=== PATIENT | female | born 1970 | race Caucasian/White ===

== ENCOUNTER → 2016-09-30 | Outpatient (CLI) | payer BC ==
--- NOTE | 2016-09-30 11:23 | US ---
EXAMINATION TYPE: US abdomen limited DATE OF EXAM: 09/30/2016 11:06 AM COMPARISON: NONE CLINICAL HISTORY: K81.0 R10.9 Cholycysitis Abdominal pain. Pt states back pain that radiates to epiga stric area/ Diarrhea EXAM MEASUREMENTS: Liver Length: 15.7 cm Gallbladder Wall: 0.2 cm CBD: 0.3 cm Right Kidney: 9.6 x 4.3 x 4.3 cm Findings: Pancreas: wnl, tail obscured by bowel gas Liver: Appered heterogeneous, otherwise wnl Gallbladder: wnl Evidence for sonographic Velasquez's sign: No CBD: wnl Right Kidney: wnl IMPRESSION: 1. Mild fatty hepatic infiltration.
== END | disposition home or self-care (01) ==
LOC: RADUSWWP 10:51
PROVIDERS: ATTEND Family Medicine
DX: K76.0 Fatty (change of) liver, not elsewhere classified (principal)
CPT/HCPCS: 76705

== ENCOUNTER 2016-10-19 09:33 | Inpatient (IN) | payer BC ==
[2016-10-19] MEDS ORDERED: HYDROmorphone 1 MG/ML 1 ML SYRINGE IVP STA ×2 (09:54→12:19)
[2016-10-19] MEDS ORDERED: ONDANSETRON 4 MG/2 ML VIAL IVP STA (09:54)
[2016-10-19] MEDS ORDERED: SODIUM CHLORIDE 0.9% 1,000 ML IV STA ×2 (09:54)
--- NOTE | 2016-10-19 10:15 | ED ---
General Adult HPI - General Chief complaint: Abdominal Pain Stated complaint: SEVERE LLQ PAIN Time Seen by Provider: 10/19/16 09:47 Source: patient, RN notes reviewed Mode of arrival: ambulatory Limitations: no limitations - History of Present Illness Initial comments: Patient is a 45-year-old female who presents emergency room today with a chief complaint of increased left lower quadrant pain that began yesterday. She does admit that she was driving home from [place]. She does admit that this morning she had pain with urination. She admits to increased pain left lower quadrant. She describes it as a sharp pain. Denies any radiation. States she's never had similar symptoms in the past. Does admit to discharge her menstrual cycle yesterday as well. States she usually has pain in her back and not the abdomen. Admits to feeling nauseated. Patient denies any recent fever, chills, shortness of breath, chest pain, back pain, numbness or tingling, dysuria or hematuria, constipation or diarrhea, headaches or visual changes, or any other complaints. - Related Data Home Medications Medication Instructions Recorded Confirmed No Known Home Medications [No 10/19/16 10/19/16 Known Home Medications] Allergies Allergy/AdvReac Type Severity Reaction Status Date / Time Penicillins Allergy Swelling Verified 10/19/16 09:40 Sulfa (Sulfonamide Allergy Swelling Verified 10/19/16 09:40 Antibiotics) Review of Systems ROS Statement: Those systems with pertinent positive or pertinent negative responses have been documented in the HPI. ROS Other: All systems not noted in ROS Statement are negative. Past Medical History Past Medical History: GERD/Reflux, Hyperlipidemia Additional Past Medical History / Comment(s): increase in urination and bowel movements, History of Any Multi-Drug Resistant Organisms: None Reported Past Surgical History: Tonsillectomy Additional Past Surgical History / Comment(s): EGD, fundoplication Past Anesthesia/Blood Transfusion Reactions: Family History of Problems w/ Anesthesia, Motion Sickness Additional Past Anesthesia/Blood Transfusion Reaction / Comment(s): FATHER TAKES LONGER TO WAKE UP, TROUBLE WITH INTUBATION" Past Psychological History: No Psychological Hx Reported Smoking Status: Current some day smoker Past Alcohol Use History: Occasional Past Drug Use History: None Reported - Past Family History Father Family Medical History: Cancer Sister(s) Family Medical History: Cancer General Exam - General Exam Comments Initial Comments: General: The patient is awake and alert, in no distress, and does not appear acutely ill. Eye: Pupils are equal, round and reactive to light, extra-ocular movements are intact. No nystagmus. There is normal conjunctiva bilaterally. No signs of icterus. Ears, nose, mouth and throat: There are moist mucous membranes and no oral lesions. Neck: The neck is supple, there is no tenderness or JVD. Cardiovascular: There is a regular rate and rhythm. No murmur, rub or gallop is appreciated. Respiratory: Lungs are clear to auscultation, respirations are non-labored, breath sounds are equal. No wheezes, stridor, rales, or rhonchi. Gastrointestinal: Normal. His abdomen. Normal bowel sounds. Abdomen soft on palpation. Patient does have mild tenderness in the left lower quadrant. No rebound tenderness. No guarding. No CVA tenderness. Musculoskeletal: Normal ROM, no tenderness. Strength 5/5. Sensation intact. Pulses equal bilaterally 2+. Neurological: A&O x 3. CN II-XII intact, There are no obvious motor or sensory deficits. Coordination appears grossly intact. Speech is normal. Skin: Skin is warm and dry and no rashes or lesions are noted. Psychiatric: Cooperative, appropriate mood & affect, normal judgment. Limitations: no limitations Course Vital Signs 10/19/16 10/19/16 10/19/16 09:35 10:32 12:45 Temperature 97.7 F Pulse Rate 91 79 93 Respiratory 18 15 20 Rate Blood Pressure 172/75 138/84 134/74 O2 Sat by Pulse 100 100 97 Oximetry Medical Decision Making - Medical Decision Making Patient labs been reviewed. 1200 white count. Patient's urinalysis shows large amount of blood. She is on her menstrual cycle. CT has been reviewed and does show evidence for diverticulitis with possible microperforation. Results were discussed with the patient also with attending physician Dr. Pond. Patient will be started on antibiotics and admitted to the hospital. - Lab Data Result diagrams: 10/19/16 10:20 10/19/16 10:20 Lab Results 10/19/16 10/19/16 10/19/16 Range/Units 10:20 10:20 10:20 WBC 12.8 H (3.8-10.6) k/uL RBC 4.26 (3.80-5.40) m/uL Hgb 14.1 (11.4-16.0) gm/dL Hct 42.6 (34.0-46.0) % MCV 100.1 H (80.0-100.0) fL MCH 33.0 (25.0-35.0) pg MCHC 33.0 (31.0-37.0) g/dL RDW 12.8 (11.5-15.5) % Plt Count 275 (150-450) k/uL Neutrophils % 84 % Lymphocytes % 9 % Monocytes % 3 % Eosinophils % 2 % Basophils % 1 % Neutrophils # 10.7 H (1.3-7.7) k/uL Lymphocytes # 1.1 (1.0-4.8) k/uL Monocytes # 0.4 (0-1.0) k/uL Eosinophils # 0.3 (0-0.7) k/uL Basophils # 0.1 (0-0.2) k/uL Sodium 138 (137-145) mmol/L Potassium 5.3 H (3.5-5.1) mmol/L Chloride 105 (98-107) mmol/L Carbon Dioxide 24 (22-30) mmol/L Anion Gap 9 mmol/L BUN 7 (7-17) mg/dL Creatinine 0.71 (0.52-1.04) mg/dL Est GFR (MDRD) Af Amer >60 (>60 ml/min/1.73 sqM) Est GFR (MDRD) Non-Af >60 (>60 ml/min/1.73 sqM) Glucose 97 (74-99) mg/dL Calcium 9.2 (8.4-10.2) mg/dL Total Bilirubin 1.8 H (0.2-1.3) mg/dL AST 47 H (14-36) U/L ALT 16 (9-52) U/L Alkaline Phosphatase 56 (38-126) U/L Total Protein 7.9 (6.3-8.2) g/dL Albumin 4.5 (3.5-5.0) g/dL Amylase 40 (30-110) U/L Lipase 32 (23-300) U/L Urine Color Dark Brown Urine Appearance Turbid H (Clear) Urine pH 5.5 (5.0-8.0) Ur Specific [place] 1.018 (1.001-1.035) Urine Protein 1+ H (Negative) Urine Glucose (UA) Negative (Negative) Urine Ketones Negative (Negative) Urine Blood Large H (Negative) Urine Nitrite Negative (Negative) Urine Bilirubin Negative (Negative) Urine Urobilinogen <2.0 (<2.0) mg/dL Ur Leukocyte Esterase Small H (Negative) Urine RBC >182 H (0-5) /hpf Urine WBC 2 (0-5) /hpf Ur Squamous Epith Cells 2 (0-4) /hpf Urine Bacteria Rare H (None) /hpf Urine Mucus Occasional H (None) /hpf Urine HCG, Qual (Not Detectd) 10/19/16 Range/Units 10:20 WBC (3.8-10.6) k/uL RBC (3.80-5.40) m/uL Hgb (11.4-16.0) gm/dL Hct (34.0-46.0) % MCV (80.0-100.0) fL MCH (25.0-35.0) pg MCHC (31.0-37.0) g/dL RDW (11.5-15.5) % Plt Count (150-450) k/uL Neutrophils % % Lymphocytes % % Monocytes % % Eosinophils % % Basophils % % Neutrophils # (1.3-7.7) k/uL Lymphocytes # (1.0-4.8) k/uL Monocytes # (0-1.0) k/uL Eosinophils # (0-0.7) k/uL Basophils # (0-0.2) k/uL Sodium (137-145) mmol/L Potassium (3.5-5.1) mmol/L Chloride (98-107) mmol/L Carbon Dioxide (22-30) mmol/L Anion Gap mmol/L BUN (7-17) mg/dL Creatinine (0.52-1.04) mg/dL Est GFR (MDRD) Af Amer (>60 ml/min/1.73 sqM) Est GFR (MDRD) Non-Af (>60 ml/min/1.73 sqM) Glucose (74-99) mg/dL Calcium (8.4-10.2) mg/dL Total Bilirubin (0.2-1.3) mg/dL AST (14-36) U/L ALT (9-52) U/L Alkaline Phosphatase (38-126) U/L Total Protein (6.3-8.2) g/dL Albumin (3.5-5.0) g/dL Amylase (30-110) U/L Lipase (23-300) U/L Urine Color Urine Appearance (Clear) Urine pH (5.0-8.0) Ur Specific [place] (1.001-1.035) Urine Protein (Negative) Urine Glucose (UA) (Negative) Urine Ketones (Negative) Urine Blood (Negative) Urine Nitrite (Negative) Urine Bilirubin (Negative) Urine Urobilinogen (<2.0) mg/dL Ur Leukocyte Esterase (Negative) Urine RBC (0-5) /hpf Urine WBC (0-5) /hpf Ur Squamous Epith Cells (0-4) /hpf Urine Bacteria (None) /hpf Urine Mucus (None) /hpf Urine HCG, Qual Not Detected (Not Detectd) Disposition Clinical Impression: Acute diverticulitis Disposition: ADMITTED IP TO THIS [facility] Condition: Good Time of Disposition: 13:28
[2016-10-19 10:33] LABS: Basophils # (A) 0.1 k/uL (0-0.2); Basophils % (A) 1 %; CH 33.7; CHCM 33.8; Eosinophils # (A) 0.3 k/uL (0-0.7); Eosinophils % (A) 2 %; HCT 42.6 % (34.0-46.0); HDW 2.29; HGB 14.1 gm/dL (11.4-16.0); Luc # (Auto) 0.18; Luc % (Auto) 1; Lymphocytes # (A) 1.1 k/uL (1.0-4.8); Lymphocytes % (A) 9 %; MCV 100.1 fL (80.0-100.0); Monocytes # (A) 0.4 k/uL (0-1.0); Monocytes % (A) 3 %; Neutrophils # (A) 10.7 k/uL (1.3-7.7); Neutrophils % (A) 84 %; RBC 4.26 m/uL (3.80-5.40); RDW 12.8 % (11.5-15.5); WBC 12.8 k/uL (3.8-10.6); WBC (Perox) 12.99
[2016-10-19 10:42] LABS: ALT 16 U/L (9-52); AST 47 U/L (14-36); Alkaline Phosphatase 56 U/L (38-126); Amylase 40 U/L (30-110); Anion Gap 9 mmol/L; Blood Urea Nitrogen 7 mg/dL (7-17); Calcium 9.2 mg/dL (8.4-10.2); Carbon Dioxide 24 mmol/L (22-30); Chloride 105 mmol/L (98-107); Glucose 97 mg/dL (74-99); Non-African American GFR(MDRD) >60 (>60 ml/min/1.73 sqM); Sodium 138 mmol/L (137-145); Total Bilirubin 1.8 mg/dL (0.2-1.3); Total Protein 7.9 g/dL (6.3-8.2)
[2016-10-19 10:43] LABS: Potassium 5.3 mmol/L (3.5-5.1)
[2016-10-19 10:44] LABS: Appearance,Urine Turbid (Clear); Bacteria,Urine Rare /hpf; Bilirubin,Urine Negative (Negative); Glucose,Urine (UA) Negative (Negative); Ketones,Urine Negative (Negative); Leukocyte Esterase,Urine Small (Negative); Mucus,Urine Occasional /hpf; Nitrite,Urine Negative (Negative); PH, Urine 5.5 (5.0-8.0); Particle Count 21649; Protein,Urine 1+ (Negative); RBC,Urine >182 /hpf (0-5); Specific Gravity,Urine 1.018 (1.001-1.035); Squamous Epithelial Cell,Urine 2 /hpf (0-4); UA Billing (MACRO vs. MICRO) MICRO; Urobilinogen,Urine <2.0 mg/dL (<2.0); WBC,Urine 2 /hpf (0-5)
--- NOTE | 2016-10-19 11:00 | XR ---
EXAMINATION TYPE: XR KUB DATE OF EXAM: 10/19/2016 10:41 AM CLINICAL HISTORY: Left-sided abdominal pain for 2 days. TECHNIQUE: Single supine KUB image of the abdomen is obtained. COMPARISON: None. FINDINGS: Scattered gas is seen in non-distended small bowel loops. Gas and fecal material is seen in non-distended colon. There is no visceromegaly, pneumoperitoneum, or abnormal calcification appr eciated. The lung bases are clear and the osseous structures are intact. IMPRESSION: Overall nonobstructive bowel gas pattern.
--- NOTE | 2016-10-19 11:48 | US ---
EXAMINATION TYPE: US transvaginal DATE OF EXAM: 10/19/2016 11:25 AM COMPARISON: NONE CLINICAL HISTORY: pain. LLQ pain x 1 day TECHNIQUE: Transvaginal (TV) Date of LMP: 10/18/2016, EXAM MEASUREMENTS: Uterus: 7.4 x 3.5 x 3.2 cm Endometrial Stripe: 0.3 cm Right Ovary: 2.8 x 1.8 x 1.8 cm 1. Uterus: Anteverted Heterogenous. 2. Endometrium: wnl 3. Right Ovary: Follicles seen 4. Left Ovary: Not visualized, obscured by overlying bowel gas Spectral, color and waveform doppler imaging shows good arterial and venous flow within the ovaries ; there is no evidence for ovarian torsion. 5. Bilateral Adnexa: wnl 6. Posterior cul-de-sac: Free fluid Cervix- echogenic lesion seen, nonvascular= 1.0 x 0.8 x 0.5 cm. IMPRESSION: There is echogenic focus along the cervix at the level of the endometrium which is ill-de fined. Consider short interval follow-up, endometrial biopsy as indicated. Consider [employer] consult. Exam is limited.
--- NOTE | 2016-10-19 12:46 | CT ---
EXAMINATION TYPE: CT abdomen pelvis wo con DATE OF EXAM: 10/19/2016 12:37 PM HISTORY: anterior LLQ pain worse with urination. CT DLP: 420.0 mGycm. Automated Exposure Control for Dose Reduction was Utilized. TECHNIQUE: CT scan of the abdomen and pelvis is performed without oral or IV contrast. COMPARISON: Pelvic ultrasound earlier today FINDINGS: Within the limitations of a non-contrast study, the following observations are made. LUNG BASES: Dependent atelectatic change in both lung bases is present. LIVER/GB: No significant abnormality is appreciated. PANCREAS: No significant abnormality is seen. SPLEEN: No significant abnormality is seen. ADRENALS: No significant abnormality is seen. KIDNEYS: No renal stones or hydronephrosis is evident bilaterally. No intraluminal calculus in the bl adder is seen. BOWEL: Evaluation bowel is suboptimal secondary to lack of enteric contrast. There is no suspicious s mall or large bowel dilatation identified. There are few diverticula in the proximal sigmoid colon. T here is moderate surrounding fluid and ill-defined fat stranding consistent with acute diverticulitis centered near axial image 61. Small focus of extraluminal air is suspicious for contained perforatio n posteriorly on sagittal image 75. No well-formed fluid collection or abscess is seen. GENITAL ORGANS: Uterus is anteverted in shape and within normal limits in size extending to right of midline. Small moderate free fluid is seen in pelvic cul-de-sac near axial image 72. Right ovary is normal in size on axial image 70. Left ovary is less well seen likely within normal limits more super iorly on axial image 59. This is likely why was nonvisualized on recent ultrasound. Cervix within nor mal limits on CT. LYMPH NODES: No greater than 1cm abdominal or pelvic lymph nodes are appreciated. OSSEOUS STRUCTURES: No significant abnormality is seen. OTHER: No significant additional abnormality is seen. IMPRESSION: CT findings consistent with a fairly moderate acute diverticulitis centered in the proxim al to mid sigmoid colon in the anterior left lower quadrant/upper pelvis. There is extraluminal air s uspicious for contained microperforation. No well-formed fluid collection or abscess is noted.
[2016-10-19] MEDS ORDERED: LEVOFLOXACIN 500MG-D5W PMX 500 MG in DEXTROSE/WATER 1 100ML.BAG IVPB STA (13:38)
[2016-10-19] MEDS ORDERED: metroNIDAZOLE-NS PMX 500 MG in SALINE 1 100ML.BAG IVPB STA (13:38)
[2016-10-19] MEDS ORDERED: NALOXONE 0.4 MG/ML 1 ML VIAL IV PRN (13:39)
[2016-10-19] MEDS: SODIUM CHLORIDE 0.9% 1,000 ML IV ONE (14:37)
[2016-10-19] MEDS ORDERED: ACETAMINOPHEN TAB 500 MG TAB PO STA (15:05)
[2016-10-19] MEDS: HYDROmorphone 1 MG/ML 1 ML SYRINGE IV PRN ×2 (15:27→20:53)
[2016-10-19] MEDS: ONDANSETRON 4 MG/2 ML VIAL IVP PRN (15:59)
[2016-10-19] MEDS: metroNIDAZOLE-NS PMX 500 MG in SALINE 1 100ML.BAG IVPB SCH ×2 (21:38→23:53)
[2016-10-20] MEDS: HYDROmorphone 1 MG/ML 1 ML SYRINGE IV PRN ×2 (02:16→06:59)
[2016-10-20] MEDS: ONDANSETRON 4 MG/2 ML VIAL IVP PRN ×3 (02:17→18:08)
[2016-10-20] MEDS: SODIUM CHLORIDE 0.9% 1,000 ML IV ONE (04:00)
[2016-10-20] MEDS: metroNIDAZOLE-NS PMX 500 MG in SALINE 1 100ML.BAG IVPB SCH ×4 (06:58→23:47)
[2016-10-20 07:13] LABS: Basophils % (A) 0 %; CH 33.9; CHCM 33.3; Eosinophils # (A) 0.1 k/uL (0-0.7); Eosinophils % (A) 1 %; HCT 37.7 % (34.0-46.0); HDW 2.23; HGB 12.4 gm/dL (11.4-16.0); Luc # (Auto) 0.19; Luc % (Auto) 2; Lymphocytes # (A) 1.2 k/uL (1.0-4.8); Lymphocytes % (A) 11 %; MCH 33.6 pg (25.0-35.0); MCHC 32.8 g/dL (31.0-37.0); MCV 102.2 fL (80.0-100.0); Macrocytosis Slight; Mean Platelet Volume 8.8; Monocytes # (A) 0.4 k/uL (0-1.0); Monocytes % (A) 4 %; Neutrophils # (A) 9.2 k/uL (1.3-7.7); Neutrophils % (A) 82 %; RBC 3.69 m/uL (3.80-5.40); RDW 12.7 % (11.5-15.5); WBC 11.2 k/uL (3.8-10.6); WBC (Perox) 12.11
[2016-10-20 07:40] LABS: ALT 22 U/L (9-52); AST 17 U/L (14-36); Alkaline Phosphatase 43 U/L (38-126); Anion Gap 8 mmol/L; Blood Urea Nitrogen 5 mg/dL (7-17); Calcium 8.3 mg/dL (8.4-10.2); Carbon Dioxide 25 mmol/L (22-30); Chloride 104 mmol/L (98-107); Glucose 102 mg/dL (74-99); Non-African American GFR(MDRD) >60 (>60 ml/min/1.73 sqM); Potassium 3.8 mmol/L (3.5-5.1); Sodium 137 mmol/L (137-145); Total Bilirubin 1.1 mg/dL (0.2-1.3); Total Protein 5.9 g/dL (6.3-8.2)
[2016-10-20] MEDS: HYDROcodone/APAP 5-325MG 1 EACH TAB PO PRN ×3 (11:40→22:58)
[2016-10-20 11:46] VITALS: BMI 30.2
--- NOTE | 2016-10-20 13:04 | P.HPIM ---
History of Present Illness H&P Date: 10/20/16 Chief Complaint: Abdominal pain Patient is a 45-year-old female, patient of Dr. Nair in the outpatient setting, with medical history significant for GERD, hyperlipidemia, and nicotine dependence. Surgical history significant for EGD and Demi fundoplication. Patient presented to the hospital with complaints of left lower quadrant abdominal pain. Patient states she was driving home from [place] and was starting her menstrual cycle which she contributed initially to the abdominal pain. Patient states that eventually she had to proceed to the emergency department because the pain became unbearable. Patient denies history of similar symptoms. CT of abdomen and pelvis with evidence of acute sigmoid colon diverticulitis with contained microperforation. Patient had evidence of leukocytosis with WBC count of 12.8. Temperature 101.5 on admission. In the emergency department, patient was given 1 L of normal saline and started on IV antibiotics in the form of Levaquin and Flagyl. Patient was admitted to the medical floor with consult to Dr. Medina for surgical management. Upon examination, patient complains of left lower quadrant pain currently rated 8 out of 10, described as sharp and persistent associated with nausea without vomiting. Patient is complaining of a frontal headache currently rated 8 out of 10 described as aching associated with facial flushing. Patient denies dysphagia, tinnitus, diplopia, shortness of breath, chest pain, numbness or tingling, muscle weakness, dysuria, urinary urgency, diarrhea or constipation. Denies hematemesis, melena, or hematochezia. Patient does state that over the last 12 months she has been having diarrhea and over the last 6 months frequent episodes of right posterior shoulder pain. Patient states she had an ultrasound of her gallbladder in the outpatient setting and was told she had a fatty liver. Past Medical History Past Medical History: GERD/Reflux, Hyperlipidemia Additional Past Medical History / Comment(s): increase in urination and bowel movements-sated for pat year has had diarrhea on daily basis between 2-6 per day. "lactose intolerant", hiatal hernia(had sx), "i was told i had a fatty liver per the us done" History of Any Multi-Drug Resistant Organisms: None Reported Past Surgical History: Tonsillectomy Additional Past Surgical History / Comment(s): EGD, demi fundoplication Past Anesthesia/Blood Transfusion Reactions: Family History of Problems w/ Anesthesia Additional Past Anesthesia/Blood Transfusion Reaction / Comment(s): FATHER TAKES LONGER TO WAKE UP, TROUBLE WITH INTUBATION" Past Psychological History: No Psychological Hx Reported Additional Psychological History / Comment(s): pt is independant, lives with spouse and 1 pet dog. lives in 2 story home but mainly stays on first level. has 3 steps into home, upstairs has 13 steps. receives no outside services, no medical equipment. pt works for [employer]) and travels for her job. Smoking Status: Current every day smoker Past Alcohol Use History: Occasional Additional Past Alcohol Use History / Comment(s): started smokng at age 16(1986) , smokes 1 ppd Past Drug Use History: None Reported - Past Family History Father Family Medical History: Cancer Sister(s) Family Medical History: Cancer Additional Family Medical History / Comment(s): kidney cancer, and 2nd sister has colitis. Medications and Allergies Home Medications Medication Instructions Recorded Confirmed Type No Known Home Medications [No 10/19/16 10/19/16 History Known Home Medications] Allergies Allergy/AdvReac Type Severity Reaction Status Date / Time Penicillins Allergy Swelling Verified 10/19/16 16:06 Sulfa (Sulfonamide Allergy Swelling Verified 10/19/16 16:06 Antibiotics) Physical Exam Vitals: Vital Signs Temp Pulse Pulse Resp BP BP Pulse Ox 10/20/16 08:30 97.5 F L 89 12 119/77 97 10/19/16 23:00 98.8 F 94 16 124/80 96 10/19/16 20:34 98.3 F 84 18 110/71 100 10/19/16 15:25 100.0 F H 87 20 141/78 100 10/19/16 15:19 101.5 F H 10/19/16 14:41 87 20 135/79 100 Intake and Output 10/19/16 10/20/16 10/20/16 22:59 06:59 14:59 Intake Total 0 Output Total 150 650 Balance -150 -650 Intake: Oral 0 Output: Urine 150 650 Other: Voiding Method Toilet # Voids 1 1 Weight 74.843 kg Patient Weight 10/21/16 06:59 Weight 74.843 kg GENERAL: Pt awake and alert, lying in bed with a washcloth over her face, well- nourished, appears in mild distress. HEAD: Atraumatic, normocephalic. EYES: Pupils equal, round, and reactive to light, extraocular movements intact, sclera anicteric, conjunctiva are normal. ENT: Oropharynx clear without exudates. Moist mucous membranes. Tongue smooth, pink, no lesions, protrudes in midline. NECK:Normal range of motion, supple without lymphadenopathy or JVD. LUNGS: Breath sounds clear to auscultation bilaterally. No wheezes, rales, or rhonchi. HEART: Heart S1, S2, no S3 or S4. Regular rate and rhythm. No murmurs, rubs or gallops. ABDOMEN: Soft, severe left lower quadrant tenderness, nondistended, normoactive bowel sounds. Positive guarding to left lower quadrant. No masses or organomegaly appreciated. EXTREMITIES: Palpable peripheral pulses. No edema. No calf tenderness. NEUROLOGICAL: Pt oriented x 3. Cranial nerves II through XII grossly intact. Strength and sensation grossly intact. PSYCH: Normal mood, normal affect. SKIN: Face is flushed, dry, intact. Normal turgor. No rashes or lesions. Results CBC & Chem 7: 10/20/16 07:03 10/20/16 07:03 Labs: Abnormal Lab Results - Last 24 Hours (Table) 10/20/16 10/20/16 Range/Units 07:03 07:03 WBC 11.2 H (3.8-10.6) k/uL RBC 3.69 L (3.80-5.40) m/uL MCV 102.2 H (80.0-100.0) fL Neutrophils # 9.2 H (1.3-7.7) k/uL BUN 5 L (7-17) mg/dL Glucose 102 H (74-99) mg/dL Calcium 8.3 L (8.4-10.2) mg/dL Total Protein 5.9 L (6.3-8.2) g/dL Albumin 3.2 L (3.5-5.0) g/dL Comments: Transvaginal ultrasound: Cervix-echogenic lesion seen, nonvascular 10.80.5 cm Abdominal x-ray: report reviewed (Nonobstructive bowel gas pattern) CT scan - abdomen: report reviewed (CT findings consistent with early moderate acute diverticulitis centered in the proximal to mid sigmoid colon in the anterior left lower quadrant/upper pelvis. There is extraluminal air suspicious for contained microperforation. No well-formed fluid collection or abscess is noted.) CT scan - chest: report reviewed CT scan - pelvis: report reviewed Thrombosis Risk Factor Assmnt - DVT/VTE Prophylaxis DVT/VTE Prophylaxis: Mechanical Prophylaxis ordered, Low risk, early ambulation encouraged - Choose All That Apply Any of the Below Risk Factors Present?: Yes Each Factor Represents 1 point: Age 41-60 years, Obesity (BMI >25) Other Risk Factors: No Other congenital or acquired thrombophilia - If yes, enter type in comment: No Thrombosis Risk Factor Assessment Total Risk Factor Score: 2 Thrombosis Risk Factor Assessment Level: Low Risk Assessment and Plan Plan: Impression and plan: 1. Acute sigmoid diverticulitis, present on admission. Surgical consult in place, recommendations noted. Continue clear liquid diet, IV antibiotics in the form of Levaquin and Flagyl, symptomatic treatment and pain management, IV fluids. 2. Acute headache, no neurological deficits noted. Continue to monitor, continue supportive treatment and pain management. 3. History of chronic epigastric and right upper quadrant pain radiating to right posterior shoulder associated with diarrhea. Ultrasound of liver shows fatty infiltrate. 4. History of GERD with esophagitis. 5. History of hyperlipidemia. 6. History of Demi fundoplication. 7. Nicotine dependence. 8. DVT prophylaxis. Continue pneumatic compression sleeves to bilateral lower extremities and encourage early ambulation. 9. GI prophylaxis. Continue IV Protonix. The above impression and plan have been discussed and directed by Dr. Nair. Eagle BENITEZ acting as scribe for Dr. Nair.
[2016-10-20] MEDS: LEVOFLOXACIN 500MG-D5W PMX 500 MG in DEXTROSE/WATER 1 100ML.BAG IVPB SCH (13:48)
[2016-10-20] MEDS: PANTOPRAZOLE 40 MG/10 ML VIAL IVP SCH (13:49)
--- NOTE | 2016-10-20 15:50 | P.GSCN ---
History of Present Illness Consult date: 10/20/16 Reason for Consult: Diverticulitis Requesting physician: Juan Nair History of present illness: Patient is a 45-year-old female, patient of Dr. Nair in the outpatient setting, with medical history significant for GERD, esophagitis, and sliding hiatal hernia. Surgical history significant for EGD and Demi fundoplication. Patient presented to the hospital with complaints of left lower quadrant abdominal pain. Patient states she was driving home from [place] and was starting her menstrual cycle which she contributed initially to the abdominal pain. Patient states that eventually she had to proceed to the emergency department because the pain became unbearable. Patient denies history of similar symptoms. CT of abdomen and pelvis with evidence of acute sigmoid colon diverticulitis with contained microperforation. Patient had evidence of leukocytosis with WBC count of 12.8. Temperature 101.5 on admission. In the emergency department, patient was given 1 L of normal saline and started on IV antibiotics in the form of Levaquin and Flagyl. Patient was admitted to the medical floor. Surgical consult requested for acute diverticulitis. Upon examination, patient complains of left lower quadrant pain currently rated 8 out of 10, described as sharp and persistent associated with nausea without vomiting. Patient is complaining of a frontal headache currently rated 8 out of 10 described as aching associated with facial flushing. Patient denies dysphagia, tinnitus, diplopia, shortness of breath, chest pain, numbness or tingling, muscle weakness, dysuria, urinary urgency, diarrhea or constipation. Denies hematemesis, melena, or hematochezia. Patient does state that over the last 12 months she has been having diarrhea and over the last 6 months frequent episodes of right posterior shoulder pain. Patient states she had an ultrasound of her gallbladder in the outpatient setting and was told she had a fatty liver. Past Medical History Past Medical History: GERD/Reflux, Hyperlipidemia Additional Past Medical History / Comment(s): increase in urination and bowel movements-sated for pat year has had diarrhea on daily basis between 2-6 per day. "lactose intolerant", hiatal hernia(had sx), "i was told i had a fatty liver per the us done" History of Any Multi-Drug Resistant Organisms: None Reported Past Surgical History: Tonsillectomy Additional Past Surgical History / Comment(s): EGD, demi fundoplication Past Anesthesia/Blood Transfusion Reactions: Family History of Problems w/ Anesthesia Additional Past Anesthesia/Blood Transfusion Reaction / Comm: FATHER TAKES LONGER TO WAKE UP, TROUBLE WITH INTUBATION" Past Psychological History: No Psychological Hx Reported Additional Psychological History / Comment(s): pt is independant, lives with spouse and 1 pet dog. lives in 2 story home but mainly stays on first level. has 3 steps into home, upstairs has 13 steps. receives no outside services, no medical equipment. pt works for [employer] and travels for her job. Smoking Status: Current every day smoker Past Alcohol Use History: Occasional Additional Past Alcohol Use History / Comment(s): started smokng at age 16(1986) , smokes 1 ppd Past Drug Use History: None Reported - Past Family History Father Family Medical History: Cancer Sister(s) Family Medical History: Cancer Additional Family Medical History / Comment(s): kidney cancer, and 2nd sister has colitis. Medications and Allergies Home Medications Medication Instructions Recorded Confirmed Type No Known Home Medications [No 10/19/16 10/19/16 History Known Home Medications] Allergies Allergy/AdvReac Type Severity Reaction Status Date / Time Penicillins Allergy Swelling Verified 10/19/16 16:06 Sulfa (Sulfonamide Allergy Swelling Verified 10/19/16 16:06 Antibiotics) Surgical - Exam Vital Signs Temp Pulse Resp BP Pulse Ox 97.7 F 91 18 172/75 100 10/19/16 09:35 10/19/16 09:35 10/19/16 09:35 10/19/16 09:35 10/19/16 09:35 GENERAL: Pt awake and alert, lying in bed with a washcloth over her face, well- nourished, appears in mild distress. HEAD: Atraumatic, normocephalic. EYES: Pupils equal, round, and reactive to light, extraocular movements intact, sclera anicteric, conjunctiva are normal. ENT: Oropharynx clear without exudates. Moist mucous membranes. Tongue smooth, pink, no lesions, protrudes in midline. NECK:Normal range of motion, supple without lymphadenopathy or JVD. LUNGS: Breath sounds clear to auscultation bilaterally. No wheezes, rales, or rhonchi. HEART: Heart S1, S2, no S3 or S4. Regular rate and rhythm. No murmurs, rubs or gallops. ABDOMEN: Soft, severe left lower quadrant tenderness, nondistended, normoactive bowel sounds. Positive guarding to left lower quadrant. No masses or organomegaly appreciated. EXTREMITIES: Palpable peripheral pulses. No edema. No calf tenderness. NEUROLOGICAL: Pt oriented x 3. Cranial nerves II through XII grossly intact. Strength and sensation grossly intact. PSYCH: Normal mood, normal affect. SKIN: Face is flushed, dry, intact. Normal turgor. No rashes or lesions. Results - Labs 10/20/16 07:03 10/20/16 07:03 Abnormal Lab Results - Last 24 Hours (Table) 10/20/16 10/20/16 Range/Units 07:03 07:03 WBC 11.2 H (3.8-10.6) k/uL RBC 3.69 L (3.80-5.40) m/uL MCV 102.2 H (80.0-100.0) fL Neutrophils # 9.2 H (1.3-7.7) k/uL BUN 5 L (7-17) mg/dL Glucose 102 H (74-99) mg/dL Calcium 8.3 L (8.4-10.2) mg/dL Total Protein 5.9 L (6.3-8.2) g/dL Albumin 3.2 L (3.5-5.0) g/dL Diabetes panel 10/20/16 Range/Units 07:03 Sodium 137 (137-145) mmol/L Potassium 3.8 (3.5-5.1) mmol/L Chloride 104 (98-107) mmol/L Carbon Dioxide 25 (22-30) mmol/L BUN 5 L (7-17) mg/dL Creatinine 0.66 (0.52-1.04) mg/dL Glucose 102 H (74-99) mg/dL Calcium 8.3 L (8.4-10.2) mg/dL AST 17 (14-36) U/L ALT 22 (9-52) U/L Alkaline Phosphatase 43 (38-126) U/L Total Protein 5.9 L (6.3-8.2) g/dL Albumin 3.2 L (3.5-5.0) g/dL Calcium panel 10/20/16 Range/Units 07:03 Calcium 8.3 L (8.4-10.2) mg/dL Albumin 3.2 L (3.5-5.0) g/dL Pituitary panel 10/20/16 Range/Units 07:03 Sodium 137 (137-145) mmol/L Potassium 3.8 (3.5-5.1) mmol/L Chloride 104 (98-107) mmol/L Carbon Dioxide 25 (22-30) mmol/L BUN 5 L (7-17) mg/dL Creatinine 0.66 (0.52-1.04) mg/dL Glucose 102 H (74-99) mg/dL Calcium 8.3 L (8.4-10.2) mg/dL Adrenal panel 10/20/16 Range/Units 07:03 Sodium 137 (137-145) mmol/L Potassium 3.8 (3.5-5.1) mmol/L Chloride 104 (98-107) mmol/L Carbon Dioxide 25 (22-30) mmol/L BUN 5 L (7-17) mg/dL Creatinine 0.66 (0.52-1.04) mg/dL Glucose 102 H (74-99) mg/dL Calcium 8.3 L (8.4-10.2) mg/dL Total Bilirubin 1.1 (0.2-1.3) mg/dL AST 17 (14-36) U/L ALT 22 (9-52) U/L Alkaline Phosphatase 43 (38-126) U/L Total Protein 5.9 L (6.3-8.2) g/dL Albumin 3.2 L (3.5-5.0) g/dL - Imaging CT scan - abdomen: report reviewed (CT findings consistent with early moderate acute diverticulitis centered in the proximal to mid sigmoid colon in the anterior left lower quadrant/upper pelvis. There is extraluminal air suspicious for contained microperforation. No well-formed fluid collection or abscess is noted.) Assessment and Plan Plan: Impression and plan: 1. Acute sigmoid diverticulitis, present on admission. Continue clear liquid diet, IV antibiotics in the form of Levaquin and Flagyl, symptomatic treatment and pain management, IV fluids. 2. History of chronic epigastric and right upper quadrant pain radiating to right posterior shoulder associated with diarrhea. Ultrasound of liver shows fatty infiltrate. Patient will follow-up in outpatient setting for possible HIDA scan to rule out biliary dyskinesia. 3. History of GERD with esophagitis. 4. History of laparoscopic Demi fundoplication. 5. DVT prophylaxis. Continue pneumatic compression sleeves to bilateral lower extremities and encourage early ambulation. 6. GI prophylaxis. Continue IV Protonix. The above impression and plan have been discussed and directed by Dr. Nair. Eagle BENITEZ acting as scribe for Dr. Nair.
[2016-10-20] MEDS: SODIUM CHLORIDE 0.9% 1,000 ML IV SCH (18:06)
[2016-10-21] MEDS: SODIUM CHLORIDE 0.9% 1,000 ML IV SCH ×3 (04:23→16:19)
[2016-10-21] MEDS: HYDROcodone/APAP 5-325MG 1 EACH TAB PO PRN ×3 (04:24→12:37)
[2016-10-21] MEDS: metroNIDAZOLE-NS PMX 500 MG in SALINE 1 100ML.BAG IVPB SCH ×4 (06:14→23:29)
[2016-10-21 07:04] LABS: Basophils % (A) 0 %; CH 33.9; CHCM 33.4; Eosinophils # (A) 0.2 k/uL (0-0.7); Eosinophils % (A) 3 %; HCT 32.9 % (34.0-46.0); HDW 2.32; Luc # (Auto) 0.16; Luc % (Auto) 2; Lymphocytes # (A) 1.2 k/uL (1.0-4.8); Lymphocytes % (A) 16 %; MCH 33.9 pg (25.0-35.0); MCHC 33.3 g/dL (31.0-37.0); MCV 101.9 fL (80.0-100.0); Macrocytosis Slight; Mean Platelet Volume 8.9; Monocytes # (A) 0.3 k/uL (0-1.0); Monocytes % (A) 5 %; Neutrophils # (A) 5.5 k/uL (1.3-7.7); Neutrophils % (A) 74 %; RBC 3.23 m/uL (3.80-5.40); RDW 12.7 % (11.5-15.5); WBC 7.4 k/uL (3.8-10.6); WBC (Perox) 7.88
[2016-10-21 07:17] LABS: ALT 13 U/L (9-52); AST 14 U/L (14-36); Alkaline Phosphatase 38 U/L (38-126); Anion Gap 10 mmol/L; Blood Urea Nitrogen 3 mg/dL (7-17); Calcium 8.1 mg/dL (8.4-10.2); Carbon Dioxide 23 mmol/L (22-30); Chloride 107 mmol/L (98-107); Glucose 84 mg/dL (74-99); Magnesium 2.1 mg/dL (1.6-2.3); Non-African American GFR(MDRD) >60 (>60 ml/min/1.73 sqM); Phosphorous 2.5 mg/dL (2.5-4.5); Potassium 3.9 mmol/L (3.5-5.1); Sodium 140 mmol/L (137-145); Total Bilirubin 0.5 mg/dL (0.2-1.3); Total Protein 5.4 g/dL (6.3-8.2)
[2016-10-21] MEDS: ONDANSETRON 4 MG/2 ML VIAL IVP PRN ×2 (08:02→15:55)
[2016-10-21] MEDS: PANTOPRAZOLE 40 MG/10 ML VIAL IVP SCH (08:47)
--- NOTE | 2016-10-21 12:00 | P.PN ---
Subjective Principal diagnosis: Acute diverticulitis Patient is a 45-year-old female, patient of Dr. Nair in the outpatient setting, with medical history significant for GERD, hyperlipidemia, and nicotine dependence. Surgical history significant for EGD and Thong fundoplication. Patient presented to the hospital with complaints of left lower quadrant abdominal pain. Patient states she was driving home from [place] and was starting her menstrual cycle which she contributed initially to the abdominal pain. Patient states that eventually she had to proceed to the emergency department because the pain became unbearable. Patient denies history of similar symptoms. CT of abdomen and pelvis with evidence of acute sigmoid colon diverticulitis with contained microperforation. Patient had evidence of leukocytosis with WBC count of 12.8. Temperature 101.5 on admission. In the emergency department, patient was given 1 L of normal saline and started on IV antibiotics in the form of Levaquin and Flagyl. Patient was admitted to the medical floor with consult to Dr. Medina for surgical management. Upon examination, patient complains of left lower quadrant pain currently rated 8 out of 10, described as sharp and persistent associated with nausea without vomiting. Patient is complaining of a frontal headache currently rated 8 out of 10 described as aching associated with facial flushing. Patient denies dysphagia, tinnitus, diplopia, shortness of breath, chest pain, numbness or tingling, muscle weakness, dysuria, urinary urgency, diarrhea or constipation. Denies hematemesis, melena, or hematochezia. Patient does state that over the last 12 months she has been having diarrhea and over the last 6 months frequent episodes of right posterior shoulder pain. Patient states she had an ultrasound of her gallbladder in the outpatient setting and was told she had a fatty liver. 10/21/2016: Patient is reevaluated at bedside. Patient reports improvement in left lower quadrant abdominal pain. Patient currently rates pain 2 out of 10. Patient currently denies headache. Denies chills, fevers, nausea, vomiting, shortness of breath, or chest pain. Patient is tolerating a clear liquid diet. Afebrile. No evidence of leukocytosis. Surgical service is following patient , notes reviewed. Objective - Vital Signs Vital signs: Vital Signs Temp 98.3 F 10/21/16 08:05 Pulse 71 10/21/16 08:05 Resp 20 10/21/16 08:05 BP 129/86 10/21/16 08:05 Pulse Ox 100 10/21/16 08:05 Intake & Output 10/20/16 10/21/16 10/21/16 18:59 06:59 18:59 Intake Total 500 400 Output Total 1100 700 Balance -600 -300 Weight 74.843 kg Intake: Oral 500 400 Output: Urine 1100 700 Other: Voiding Method Toilet Toilet Toilet # Voids 1 - Exam GENERAL: Pt awake and alert, lying in bed, well-nourished, appears in no acute distress. HEAD: Atraumatic, normocephalic. EYES: Pupils equal, round, and reactive to light, extraocular movements intact, sclera anicteric, conjunctiva are normal. ENT: Oropharynx clear without exudates. Moist mucous membranes. Tongue smooth, pink, no lesions, protrudes in midline. NECK:Normal range of motion, supple without lymphadenopathy or JVD. LUNGS: Breath sounds clear to auscultation bilaterally. No wheezes, rales, or rhonchi. HEART: Heart S1, S2, no S3 or S4. Regular rate and rhythm. No murmurs, rubs or gallops. ABDOMEN: Soft, mild left lower quadrant tenderness, nondistended, normoactive bowel sounds. No guarding. No masses or organomegaly appreciated. EXTREMITIES: Palpable peripheral pulses. No edema. No calf tenderness. NEUROLOGICAL: Pt oriented x 3. Cranial nerves II through XII grossly intact. Strength and sensation grossly intact. PSYCH: Normal mood, normal affect. SKIN: Warm, dry, intact. Normal turgor. No rashes or lesions. - Labs CBC & Chem 7: 10/21/16 06:51 10/21/16 06:51 Labs: Abnormal Lab Results - Last 24 Hours (Table) 10/21/16 10/21/16 Range/Units 06:51 06:51 RBC 3.23 L (3.80-5.40) m/uL Hgb 11.0 L (11.4-16.0) gm/dL Hct 32.9 L (34.0-46.0) % MCV 101.9 H (80.0-100.0) fL BUN 3 L (7-17) mg/dL Calcium 8.1 L (8.4-10.2) mg/dL Total Protein 5.4 L (6.3-8.2) g/dL Albumin 2.8 L (3.5-5.0) g/dL Assessment and Plan Plan: Impression and plan: 1. Acute sigmoid diverticulitis, present on admission. Advance diet per surgery, continue IV antibiotics in the form of Levaquin and Flagyl, continue symptomatic treatment and pain management, continue IV fluids. 2. History of chronic epigastric and right upper quadrant pain radiating to right posterior shoulder associated with diarrhea. Ultrasound of liver shows fatty infiltrate. Patient will follow-up in outpatient setting for possible HIDA scan to rule out biliary dyskinesia per surgery. 3. History of GERD with esophagitis. 4. History of laparoscopic Thong fundoplication. 5. DVT prophylaxis. Continue pneumatic compression sleeves to bilateral lower extremities and encourage early ambulation. 6. GI prophylaxis. Continue IV Protonix. The above impression and plan have been discussed and directed by Dr. Nair. Eagle BENITEZ acting as scribe for Dr. Nair.
[2016-10-21] MEDS: LEVOFLOXACIN 500MG-D5W PMX 500 MG in DEXTROSE/WATER 1 100ML.BAG IVPB SCH (13:51)
--- NOTE | 2016-10-21 15:14 | P.PN ---
Subjective Patient is a 45-year-old female admitted with acute sigmoid colon diverticulitis with contained microperforation. Patient is feeling better. Patient currently rates abdominal pain 2 out of 10. Denies chills, fevers, nausea, vomiting, shortness of breath, or chest pain. Patient is tolerating a clear liquid diet. Afebrile. No evidence of leukocytosis. Patient reports flatus without bowel movement. Patient is urinating without difficulty. Objective - Vital Signs Vital signs: Vital Signs Temp 97.1 F L 10/21/16 11:25 Pulse 75 10/21/16 11:25 Resp 20 10/21/16 11:25 BP 110/69 10/21/16 11:25 Pulse Ox 99 10/21/16 11:25 Intake & Output 10/20/16 10/21/16 10/21/16 18:59 06:59 18:59 Intake Total 500 400 Output Total 1100 700 Balance -600 -300 Weight 74.843 kg Intake: Oral 500 400 Output: Urine 1100 700 Other: Voiding Method Toilet Toilet Toilet # Voids 1 3 - Exam GENERAL: Pt awake and alert, lying in bed, well-nourished, appears in no acute distress. HEAD: Atraumatic, normocephalic. EYES: Pupils equal, round, and reactive to light, extraocular movements intact, sclera anicteric, conjunctiva are normal. ENT: Oropharynx clear without exudates. Moist mucous membranes. Tongue smooth, pink, no lesions, protrudes in midline. NECK:Normal range of motion, supple without lymphadenopathy or JVD. LUNGS: Breath sounds clear to auscultation bilaterally. No wheezes, rales, or rhonchi. HEART: Heart S1, S2, no S3 or S4. Regular rate and rhythm. No murmurs, rubs or gallops. ABDOMEN: Soft, mild left lower quadrant tenderness, nondistended, normoactive bowel sounds. No guarding. No masses or organomegaly appreciated. EXTREMITIES: Palpable peripheral pulses. No edema. No calf tenderness. NEUROLOGICAL: Pt oriented x 3. Cranial nerves II through XII grossly intact. Strength and sensation grossly intact. PSYCH: Normal mood, normal affect. SKIN: Warm, dry, intact. Normal turgor. No rashes or lesions. - Labs CBC & Chem 7: 10/21/16 06:51 10/21/16 06:51 Labs: Abnormal Lab Results - Last 24 Hours (Table) 10/21/16 10/21/16 Range/Units 06:51 06:51 RBC 3.23 L (3.80-5.40) m/uL Hgb 11.0 L (11.4-16.0) gm/dL Hct 32.9 L (34.0-46.0) % MCV 101.9 H (80.0-100.0) fL BUN 3 L (7-17) mg/dL Calcium 8.1 L (8.4-10.2) mg/dL Total Protein 5.4 L (6.3-8.2) g/dL Albumin 2.8 L (3.5-5.0) g/dL Assessment and Plan Plan: Impression and plan: 1. Acute sigmoid diverticulitis, present on admission. Advance diet to full liquids, continue IV antibiotics in the form of Levaquin and Flagyl, symptomatic treatment and pain management, IV fluids. 2. History of chronic epigastric and right upper quadrant pain radiating to right posterior shoulder associated with diarrhea. Ultrasound of liver shows fatty infiltrate. Patient will follow-up in outpatient setting for possible HIDA scan to rule out biliary dyskinesia. 3. History of GERD with esophagitis. 4. History of laparoscopic Thong fundoplication. 5. DVT prophylaxis. Continue pneumatic compression sleeves to bilateral lower extremities and encourage early ambulation. 6. GI prophylaxis. Continue IV Protonix. The above impression and plan have been discussed and directed by Dr. Medina. Eagle BENITEZ acting as scribe for Dr. Medina.
[2016-10-21] MEDS: ACETAMINOPHEN TAB 325 MG TAB PO PRN ×2 (16:16→22:52)
[2016-10-22] MEDS: SODIUM CHLORIDE 0.9% 1,000 ML IV SCH ×2 (04:24→16:54)
[2016-10-22] MEDS: ACETAMINOPHEN TAB 325 MG TAB PO PRN ×2 (05:46→12:09)
[2016-10-22] MEDS: metroNIDAZOLE-NS PMX 500 MG in SALINE 1 100ML.BAG IVPB SCH ×3 (05:55→18:43)
[2016-10-22 08:51] LABS: Basophils # (A) 0.1 k/uL (0-0.2); Basophils % (A) 1 %; CH 33.4; CHCM 33.2; Eosinophils # (A) 0.1 k/uL (0-0.7); Eosinophils % (A) 2 %; HDW 2.42; HGB 11.6 gm/dL (11.4-16.0); Luc # (Auto) 0.13; Luc % (Auto) 3; Lymphocytes # (A) 0.7 k/uL (1.0-4.8); Lymphocytes % (A) 14 %; MCH 33.4 pg (25.0-35.0); MCV 101.1 fL (80.0-100.0); Mean Platelet Volume 9.2; Monocytes # (A) 0.2 k/uL (0-1.0); Monocytes % (A) 4 %; Neutrophils % (A) 76 %; RBC 3.46 m/uL (3.80-5.40); RDW 12.7 % (11.5-15.5); WBC 5.3 k/uL (3.8-10.6); WBC (Perox) 5.73
[2016-10-22] MEDS: PANTOPRAZOLE 40 MG/10 ML VIAL IVP SCH (08:54)
[2016-10-22 09:15] LABS: Anion Gap 11 mmol/L; Blood Urea Nitrogen 2 mg/dL (7-17); Calcium 8.3 mg/dL (8.4-10.2); Carbon Dioxide 23 mmol/L (22-30); Chloride 107 mmol/L (98-107); Glucose 167 mg/dL (74-99); Non-African American GFR(MDRD) >60 (>60 ml/min/1.73 sqM); Potassium 3.8 mmol/L (3.5-5.1); Sodium 141 mmol/L (137-145)
[2016-10-22] MEDS ORDERED: fentaNYL (PF) 50 MCG/ML 2 ML AMP IV ONE ×2 (11:00→23:00)
[2016-10-22] MEDS: LEVOFLOXACIN 500MG-D5W PMX 500 MG in DEXTROSE/WATER 1 100ML.BAG IVPB SCH (14:12)
[2016-10-22] MEDS ORDERED: HYDROmorphone 1 MG/ML 1 ML SYRINGE IVP STA (14:56)
--- NOTE | 2016-10-22 15:48 | P.PN ---
Progress Note - Text When I first saw the patient the this afternoon she was feeling a whole lot better. The 100 to go home. Mild the left lower quadrant discomfort. She was afebrile. Quite soft with minimal tenderness in the left lower quadrant. It was therefore decided to initially discharge her on by mouth antibiotics. However within 10-15 minutes after (the patient developed excruciating pain mostly in the left lower quadrant lower abdominal area. Abdominal film showed no definite free air repeat examination reveals she is somewhat comfortable with the IV Dilaudid. Abdomen is soft. She definitely has more tenderness in the left lower quadrant some guarding but no definite rebound. WBCs pending. Impression acute diverticulitis the microperforation. Possible worsening. Recommendation continue close monitoring check her WBC. May need surgical intervention.
--- NOTE | 2016-10-22 15:53 | XR ---
EXAMINATION TYPE: XR abdomen 2V DATE OF EXAM: 10/22/2016 3:28 PM COMPARISON: 10/19/2016 HISTORY: Pain TECHNIQUE: 2 views FINDINGS: There is no sign of intestinal obstruction or pneumoperitoneum. There are a few small bowel loops with gas and fluid that could relate to mild ileus. Lung bases are clear. There are some leads over the upper abdomen. There are no pathologic calcifications over the kidneys. IMPRESSION: There is evidence for mild small bowel ileus without change compared to last exam. No miladis e air.
[2016-10-22 16:27] LABS: Basophils % (A) 0 %; CH 33.3; CHCM 33.3; Eosinophils # (A) 0.1 k/uL (0-0.7); Eosinophils % (A) 3 %; HCT 34.1 % (34.0-46.0); HDW 2.44; HGB 11.3 gm/dL (11.4-16.0); Luc # (Auto) 0.08; Luc % (Auto) 2; Lymphocytes # (A) 0.8 k/uL (1.0-4.8); Lymphocytes % (A) 19 %; MCH 33.4 pg (25.0-35.0); MCHC 33.2 g/dL (31.0-37.0); MCV 100.6 fL (80.0-100.0); Mean Platelet Volume 8.7; Monocytes # (A) 0.3 k/uL (0-1.0); Monocytes % (A) 6 %; Neutrophils % (A) 70 %; RBC 3.39 m/uL (3.80-5.40); RDW 12.7 % (11.5-15.5); WBC 4.3 k/uL (3.8-10.6); WBC (Perox) 4.56
[2016-10-22] MEDS ORDERED: RX INFO: IV CONTRAST WAS GIVEN 1 EACH MISC MISCELLANE PRN (16:42)
[2016-10-22] MEDS: HYDROmorphone 1 MG/ML 1 ML SYRINGE IV PRN ×2 (17:34→20:08)
--- NOTE | 2016-10-22 17:42 | CT ---
EXAMINATION TYPE: CT abdomen pelvis w con DATE OF EXAM: 10/22/2016 5:25 PM COMPARISON: 10/19/2016 HISTORY: Bilateral upper quadrant pain and nausea and vomiting. CT DLP: 1297.4 mGycm Automated exposure control for dose reduction was used. TECHNIQUE: Helical acquisition of images was performed from the lung bases through the pelvis. CONTRAST: Performed without Oral Contrast and with IV Contrast, patient injected with 100 mL of Omnipaque 300. FINDINGS: There are small bilateral pleural effusions. There is patchy infiltrate and atelectasis at the granulizing machine operator ior lung bases. There is a small hiatal hernia. Liver shows no focal defect. Bile ducts are not dilated. Gallbladder appears normal. There is no panc reatic mass. Spleen appears normal. There is mild ascites. There is wall thickening and surrounding inflammatory change involving the proximal sigmoid colon. Th ere is no sign of free air. There is no adrenal mass. Kidneys show satisfactory contrast opacification. There is no hydronephrosi s. There is no retroperitoneal adenopathy. Bladder distends smoothly. There is no sign of a pelvic ma ss. I see no bony destructive process. IMPRESSION: THERE IS EVIDENCE OF SIGMOID DIVERTICULITIS. THERE IS NEW MODERATE ASCITES FLUID COMPARED TO THE LAST EXAM OF 10/19/2016. THIS COULD RELATE TO PERITONITIS. NO BOWEL OBSTRUCTION. THERE ARE NEW PLEURAL EFF USIONS AND INFILTRATE AND ATELECTASIS AT THE POSTERIOR LUNG BASES.
[2016-10-22] MEDS: LORazepam 2 MG/ML SYRINGE IV PRN (18:28)
--- NOTE | 2016-10-22 19:28 | P.PN ---
Progress Note - Text The patient continues to have quite severe pain. She requires analgesics round- the-clock. The CT showed free fluid now in the pelvis from before fever. WBC was unremarkable. She is extremely tender with rebound tenderness and no peritoneal signs now. Once again barely touch abdomen is pressed in the left lower quadrant area. Impression suspect the perforation with peritonitis now with the continued severe pain now throughout today. Recommendation recommend exploratory laparotomy and sigmoid resection with colostomy and informed consent was obtained procedure have been explained to the patient and including potential complication particular bleeding infection wound problems surrounding injury etc. they understood and agree to proceed.
--- NOTE | 2016-10-22 19:56 | PN ---
DATE OF SERVICE: 10/22/2016 I am covering for Dr. Nair. This 45 -year-old woman with past medical history of multiple medical problems, admitted with features of acute sigmoid diverticulitis. The patient was admitted and diet was advanced per surgery. IV antibiotics were given. The patient slated to go home per Dr. Chu. The white count is 4.7, Hemoglobin 11.3. The cultures are negative and the patient also had abdominal and pelvis CT scan on 10/19/2016 which showed fairly moderate acute diverticulitis in the proximal and mid sigmoid colon anterior lower part, and contain microperforations also noted. The patient is complaining of severe abdominal pain. The patient is being closely monitored at this time. PAST MEDICAL HISTORY: Reviewed. REVIEW OF SYSTEMS: CARDIOVASCULAR: No angina. RESPIRATORY: As mentioned earlier. GI: As mentioned earlier. : No dysuria. Nervous system: No numbness or weakness. Current MEDICATIONS are: 1. Tylenol 650 q.6h p.r.n. 2. [place] 5 mg q.4 p.r.n. 3. Dilaudid 1 mg q.3 p.r.n. 4. Levaquin 500 mg q.24h. 5. Flagyl 500 mg q.6h. 6. Narcan 0.2 q.2 p.r.n. 7. Zofran. 8. Protonix. PHYSICAL EXAMINATION: Patient is alert and oriented times three. Pulse 71, blood pressure 141/80, respiration 18, temperature 98 degrees, pulse ox 97% on room air. HEENT: Conjunctivae normal. NECK: No jugular venous distention. CARDIOVASCULAR: S1, S2 muffled. RESPIRATORY: Breath sounds diminished at the bases. A few scattered rhonchi, no crackles. ABDOMEN: Soft. Mild diffuse tenderness in the sigmoid area present. No guarding. No rigidity. No mass palpable. LEGS: No edema. No swelling. CENTRAL NERVOUS SYSTEM: No focal deficits. LABS: WBC 4.3, hemoglobin 11.3. Other labs are noted. Albumin is 2.8. UA noted. ASSESSMENT: 1. Acute abdominal pain with acute sigmoid diverticulitis with suspicious extraluminal air with the contained microperforation. 2. History of chronic epigastric and right upper quadrant pain. 3. History of gastroesophageal reflux disease with esophagitis. 4. History of laparoscopic Thong fundoplication. 5. DVT prophylaxis and GI prophylaxis. 6. Increased WBC on presentation. 7. Increased MCV. 8. Increased potassium. 9. Increased total bilirubin. 10. Increased AST. 11. Hypoalbuminemia with mild to moderate protein calorie malnutrition. 12. Hematuria present on admission. 13. Hyperlipidemia, history. 14. Remote history of nicotine dependence. 15. FULL CODE. RECOMMENDATIONS AND DISCUSSION: In this 45-year-old woman who presented with multiple complex medical issues, at this time, we will monitor the patient closely. The white count is 4.7, hemoglobin 11.3. Because of recurrence of pain I recommend to keep the patient in the hospital and continue to monitor. Surgical evaluation by Dr. Chu. Continue with broad-spectrum IV antibiotics. The patient is currently on Levaquin and Flagyl. The patient is afebrile. PATIENT HAS ALLERGY TO PENICILLIN. Guarded prognosis. Further recommendations to follow. See orders for further details. Repeat labs will be ordered. MTDD
[2016-10-22] MEDS ORDERED: fentaNYL (PF) 50 MCG/ML 2 ML AMP ONE (20:35)
[2016-10-22] MEDS ORDERED: GLYCOPYRROLATE 0.2 MG/ML 2 ML VIAL ONE (20:35)
[2016-10-22] MEDS ORDERED: DEXAMETHASONE SOD PHOS (MDV) 100 MG/10 ML VIAL ONE (20:35)
[2016-10-22] MEDS ORDERED: SUCCINYLCHOLINE CHLORIDE VIAL 200 MG/10 ML VIAL IV ONE (20:35)
[2016-10-22] MEDS ORDERED: VECURONIUM 10 MG VIAL IV ONE (20:35)
[2016-10-22] MEDS ORDERED: MIDAZOLAM 2 MG/2 ML VIAL ONE (20:35)
[2016-10-22] MEDS ORDERED: SODIUM CHLORIDE 0.9% 1,000 ML IV ONE (20:35)
[2016-10-22] MEDS ORDERED: LIDOCAINE 1% INJ 10MG/ML (20 ML MDV) ONE (20:35)
[2016-10-22] MEDS ORDERED: PROPOFOL 10 MG/ML 20 ML VIAL IV ONE (20:35)
[2016-10-22] MEDS ORDERED: NEOSTIGMINE 1 MG/ML 10 ML VIAL ONE (20:35)
[2016-10-22] MEDS: HYDROmorphone 1 MG/ML 1 ML SYRINGE IVP ONE ×4 (20:45→22:50)
[2016-10-22] MEDS ORDERED: LACTATED RINGERS 1,000 ML IV ONE ×2 (21:18→22:14)
[2016-10-22] MEDS ORDERED: NALOXONE 0.4 MG/ML 1 ML VIAL IV PRN (22:08)
--- NOTE | 2016-10-22 22:49 | P.PCN ---
Date of Procedure: 10/22/16 Preoperative Diagnosis: Acute diverticulitis with peritonitis Postoperative Diagnosis: Acute diverticulitis with perforation and peritonitis Procedure(s) Performed: Exploratory laparotomy with Efe sigmoid resection with colostomy Anesthesia: KIRAN Surgeon: Davi Chu Estimated Blood Loss (ml): 100 Pathology: other (Sigmoid colon) Condition: stable Disposition: PACU Indications for Procedure: The patient is a 45-year-old white female was admitted with evidence of acute diverticulitis 2 days ago on computed tomography scan. She had improved quite well until later today she developed severe abdominal pain is writhing in pain and was not responsive to the analgesia other than for very short period time. When weeks when she was found to have evidence of peritonitis or rebound tenderness some rigidity and very severe tenderness across the lower abdomen especially in the left lower quadrant area. Exploratory laparotomy with sigmoid resection and colostomy was recommended despite an unremarkable computed tomography scan for free air in view of the clinical findings. This was explained to the patient and her including potential complication particular bleeding infection wound problems need for colostomy and further surgery in the future to close the colostomy etc. they understood and agree to proceed. Operative Findings: Perforated sigmoid diverticulitis with the perforation in the proximal sigmoid colon with Seropurulent fluid in the lower abdomen and pelvis. Description of Procedure: After induction of general endotracheal anesthesia NG tube and Parish catheter were placed. The abdominal wall was prepped with DuraPrep. Midline incision was made from the umbilicus to the symphysis pubis. Immediately upon entering the peritoneal cavity there was a large amount of serous purulent material this was sucked out wound protector placed. Further exploration confirmed evidence of acute the diverticulitis with fibrinous exudate and a localized perforation that easily admitted the tip of a hemostat. The sigmoid colon was mobilized by division of lateral peritoneal attachments. The bowel was divided approximately the 75 mm SHANNON stapler and distally with the contour stapler to include all the diseased tissue. The mesentery were then divided close to the bowel wall with the LigaSure. Rectal stump was marked with 2-0 Prolene sutures. The proximal bowel was further mobilized all the way up to include the splenic flexure and then brought out through an opening in the left lower quadrant. Midline incision was then closed with the running #1 double-stranded PDS after the peritoneal cavity was thoroughly irrigated with about 3 L of fluid. Subcutaneous tissues were irrigated and the skin closed with armond loosely and Telfa wick Drains soaked in diluted Betadine were placed in between the armond the colostomy which looked healthy and pink was then opened and secured to the skin with interrupted 4-0 Vicryl sutures in the usual Pinzon fashion. Dressings were applied. All counts were correct. Blood loss was less than 100 amalgams. The patient remained stable and was transported to the recovery room in stable condition.
[2016-10-22] MEDS: BUPIVACAINE (PF) 0.5% 31.3 ML, HYDROmorphone 5 MG in SODIUM CHLORIDE 0.9% 216 ML EPIDURAL PRN ×2 (23:00→23:25)
[2016-10-23] MEDS: metroNIDAZOLE-NS PMX 500 MG in SALINE 1 100ML.BAG IVPB SCH ×5 (03:21→23:50)
[2016-10-23] MEDS: SODIUM CHLORIDE 0.9% 1,000 ML IV SCH ×5 (03:25→23:05)
[2016-10-23] MEDS: ACETAMINOPHEN IV (For NPO) 1,000 MG in EMPTY BAG 1 BAG IVPB SCH ×4 (07:11→17:14)
[2016-10-23] MEDS: PANTOPRAZOLE 40 MG/10 ML VIAL IVP SCH (07:25)
[2016-10-23 07:39] LABS: Basophils % (A) 0 %; CH 33.5; CHCM 33.1; Eosinophils % (A) 0 %; HCT 36.6 % (34.0-46.0); HDW 2.44; HGB 11.8 gm/dL (11.4-16.0); Luc # (Auto) 0.07; Luc % (Auto) 1; Lymphocytes # (A) 0.5 k/uL (1.0-4.8); Lymphocytes % (A) 6 %; MCH 32.8 pg (25.0-35.0); MCHC 32.3 g/dL (31.0-37.0); MCV 101.5 fL (80.0-100.0); Monocytes # (A) 0.3 k/uL (0-1.0); Monocytes % (A) 4 %; Neutrophils # (A) 7.2 k/uL (1.3-7.7); Neutrophils % (A) 89 %; RDW 12.6 % (11.5-15.5); WBC (Perox) 8.33
[2016-10-23 07:54] LABS: Anion Gap 11 mmol/L; Calcium 8.2 mg/dL (8.4-10.2); Carbon Dioxide 24 mmol/L (22-30); Chloride 105 mmol/L (98-107); Glucose 143 mg/dL (74-99); Non-African American GFR(MDRD) >60 (>60 ml/min/1.73 sqM); Sodium 140 mmol/L (137-145)
[2016-10-23 07:58] LABS: Blood Urea Nitrogen 3 mg/dL (7-17)
--- NOTE | 2016-10-23 10:32 | P.PN ---
Progress Note - Text The patient is awake alert the cheerful in no acute distress. Vitals are stable. Temperature is normal. She had a Efe sigmoid resection yesterday for perforation of sigmoid diverticulitis. On examination she is afebrile. Vitals are stable. Abdomen shows usual postoperative tenderness. Stoma looks healthy. Labs are fine. Impression stable postop. Recommendation we will start on clear liquids today and progressively advance.
[2016-10-23] MEDS: LEVOFLOXACIN 500MG-D5W PMX 500 MG in DEXTROSE/WATER 1 100ML.BAG IVPB SCH (15:34)
--- NOTE | 2016-10-23 17:32 | PN ---
DATE OF SERVICE: 10/23/2016 I am covering for Dr. Nair. This 45-year-old woman who was admitted with features of acute diverticulitis with microperforation, possibly, yesterday had sudden onset of severe abdominal pain which is radiating diffusely. Dr. Chu evaluated the patient and recommended a repeat ultrasound. A repeat CT scan of the abdomen showed evidence of moderate sigmoid diverticulitis and ascites compared to the previous one. Dr. Chu performed exploratory laparotomy with Efe sigmoid resection with colostomy for acute diverticulitis with perforation and peritonitis. The patient being closely monitored the patient. The patient on broad spectrum IV antibiotics. Past medical history reviewed. REVIEW OF SYSTEMS: CARDIOVASCULAR: No angina or palpitations. RESPIRATORY SYSTEM: As mentioned earlier. GI: As mentioned earlier. : No dysuria. Nervous system: No numbness or weakness. Current medications are reviewed and include: 1. Tylenol 1000 mg q6h p.r.n. 2. Tracy 5 mg q.4. 3. Bupivacaine. 4. Dilaudid 1 mg q.3 p.r.n. 5. Levaquin 500 mg IV daily. 6. Ativan 0.5 mg. 7. Flagyl 500 mg q.8. 8. Narcan 0.2 q2h p.r.n. 9. Zofran. 10. Protonix 40 daily. 11. IV fluids. PHYSICAL EXAMINATION: The patient is alert and oriented times three. Pulse 80, blood pressure 109/74, respirations 16, temperature 98 degrees, pulse ox 97% on room air. HEENT: Conjunctivae normal. Oral mucosa moist. NECK: No jugular venous distention. No carotid bruit. No lymph node enlargement. CARDIOVASCULAR: S1, S2. No S3, no S4. RESPIRATORY: Breath sounds diminished at the bases. No rhonchi, no crackles. ABDOMEN: Soft, status post surgery. Bowel sounds diminished. LEGS: No edema. No swelling. Nervous system: Higher functions as mentioned earlier. Moves all four limbs. No focal deficits. LYMPHATICS: No lymph nodes palpable in the neck, axillae or groin. SKIN: No ulcer, rash or bleeding. LABS: WBC 8, hemoglobin 11.8, MCV of 101.5, calcium is 8.2. ASSESSMENT: 1. Acute abdominal pain with acute sigmoid diverticulitis with perforation, peritonitis, status post exploratory laparotomy, Efe procedure, and as well as colostomy. 2. History of chronic epigastric and right quadrant upper abdominal pain. 3. History of gastroesophageal reflux disease and esophagitis. 4. History of laparoscopic Thong fundoplication. 5. DVT and GI prophylaxis. 6. Increased WBC present on admission, MCV. 7. Increased potassium. 8. Increased total bilirubin. 9. Increased AST. 10. Hypoalbuminemia with mild to moderate protein calorie malnutrition. 11. Hematuria present on admission. 12. Hyperlipidemia history. 13. Remote history of nicotine dependence. 14. FULL CODE. RECOMMENDATIONS AND DISCUSSION: In this 45-year-old woman who presented with multiple complex medical issues, we will monitor the patient closely. Continue the current medications, continue symptomatic treatment. Continue with the broad-spectrum IV antibiotics. Follow the cultures. Closely follow with Dr. Chu. DVT prophylaxis. Incentive spirometry. GI prophylaxis. Further recommendations to follow. Dr. Nair will follow. Further recommendations to follow. [facility]
--- NOTE | 2016-10-23 21:07 | P.PN ---
Progress Note - Text 10/23 2099 45-year-old female status post exploratory lap for Dr. Chu. I saw the patient this evening, epidural solution running at 7 mL an hour. No complains of nausea vomiting, pain well controlled. The pump has been alarming since the afternoon and it was changed by the shank carrier pump. We were called again with the same problem. I went to examine the patient as she was complaining of tightness in her back. I look the dressing there is no blood or redness of any inflammation or fullness in the back the dressing is clean dry and intact and the catheter did not show any kinks on the outside. I decided to leave the dressing alone as it looked good to me. Patient has been ambulating well for strength which was perfect. Plan to continue epidural infusion at 7 mL an hour
[2016-10-23] MEDS: HYDROcodone/APAP 5-325MG 1 EACH TAB PO PRN (21:08)
[2016-10-24] MEDS: HYDROcodone/APAP 5-325MG 1 EACH TAB PO PRN ×3 (01:14→11:11)
[2016-10-24] MEDS: SODIUM CHLORIDE 0.9% 1,000 ML IV SCH ×4 (07:38→22:41)
[2016-10-24] MEDS: PANTOPRAZOLE 40 MG/10 ML VIAL IVP SCH (07:39)
--- NOTE | 2016-10-24 07:59 | P.PN ---
Progress Note - Text 10/24 720am 45-year-old female status post exploratory lap with Dr. Chu. Patient has an epidural for postop pain control, I evaluated the patient this morning, epidural solution running at 7 mL an hour with a VAS of 2. No motor or sensory deficits noted. Pain pump continues to have a problem with downstream occlusion. Patient back is feeling better than last night I decided to DC the epidural and the nurse was informed
[2016-10-24 08:01] LABS: Anion Gap 10 mmol/L; Blood Urea Nitrogen 5 mg/dL (7-17); Calcium 8.1 mg/dL (8.4-10.2); Carbon Dioxide 23 mmol/L (22-30); Chloride 106 mmol/L (98-107); Glucose 77 mg/dL (74-99); Non-African American GFR(MDRD) >60 (>60 ml/min/1.73 sqM); Potassium 3.5 mmol/L (3.5-5.1); Sodium 139 mmol/L (137-145)
[2016-10-24 08:05] LABS: Basophils % (A) 0 %; CH 32.8; CHCM 32.4; Eosinophils # (A) 0.1 k/uL (0-0.7); Eosinophils % (A) 1 %; HCT 34.2 % (34.0-46.0); HDW 2.47; HGB 11.4 gm/dL (11.4-16.0); Luc # (Auto) 0.23; Luc % (Auto) 2; Lymphocytes # (A) 1.3 k/uL (1.0-4.8); Lymphocytes % (A) 14 %; MCH 33.9 pg (25.0-35.0); MCHC 33.3 g/dL (31.0-37.0); MCV 101.7 fL (80.0-100.0); Mean Platelet Volume 8.1; Monocytes # (A) 0.7 k/uL (0-1.0); Monocytes % (A) 8 %; Neutrophils # (A) 7.1 k/uL (1.3-7.7); Neutrophils % (A) 75 %; RBC 3.36 m/uL (3.80-5.40); RDW 12.8 % (11.5-15.5); WBC 9.5 k/uL (3.8-10.6); WBC (Perox) 10.37
[2016-10-24] MEDS: metroNIDAZOLE-NS PMX 500 MG in SALINE 1 100ML.BAG IVPB SCH ×4 (10:44→23:55)
--- NOTE | 2016-10-24 12:41 | P.PN ---
Subjective Principal diagnosis: Acute diverticulitis with perforation and peritonitis Patient is a 45-year-old female admitted with acute sigmoid colon diverticulitis with perforation and peritonitis status post exploratory laparotomy with Efe sigmoid resection with colostomy on 10/22/2016. Upon examination, patient is feeling better. Patient reports burping, no flatus or bowel movement. Denies chills, fevers, nausea, vomiting, shortness of breath, or chest pain. Incisional pain controlled. Patient is tolerating a clear liquid diet. Urine output adequate. Afebrile. No evidence of leukocytosis. Epidural has been discontinued. Objective - Vital Signs Vital signs: Vital Signs Temp 98.6 F 10/24/16 07:00 Pulse 90 10/24/16 07:00 Resp 15 10/24/16 07:00 BP 130/70 10/24/16 07:00 Pulse Ox 95 10/24/16 07:00 Intake & Output 10/23/16 10/24/16 10/24/16 18:59 06:59 18:59 Intake Total 120 1320 120 Output Total 300 750 Balance -180 570 120 Weight 74.843 kg Intake: Intake, IV Titration 1320 Amount Bupivacaine (Pf) 0.5% 31. 70 3 ml HYDROmorphone 5 mg In Sodium Chloride 0.9% 216 ml @ Per Protocol EPIDURAL .Q0M PRN Rx#: [id number] Sodium Chloride 0.9% 1, 1250 000 ml @ 125 mls/hr IV . Q8H FRACISCO Rx#:[id number] Oral 120 120 Output: Urine 300 750 Uretheral (Parish) 500 Other: Voiding Method Indwelling Catheter Indwelling Catheter Indwelling Catheter - Exam GENERAL: Pt awake and alert, lying in bed, well-nourished, appears in no acute distress. HEAD: Atraumatic, normocephalic. EYES: Pupils equal, round, and reactive to light, extraocular movements intact, sclera anicteric, conjunctiva are normal. ENT: Oropharynx clear without exudates. Moist mucous membranes. NECK:Normal range of motion, supple without lymphadenopathy or JVD. LUNGS: Breath sounds clear to auscultation bilaterally. No wheezes, rales, or rhonchi. HEART: Heart S1, S2, no S3 or S4. Regular rate and rhythm. No murmurs, rubs or gallops. ABDOMEN: Soft, mild incisional pain, nondistended, normoactive bowel sounds. No guarding. No rebound. Stoma looks healthy. No flatus or stool noted in colostomy bag. Abdominal incision closed with armond with intermittent Telfa yu inserted, draining small amount of serous drainage, no erythema or purulent drainage noted. EXTREMITIES: Palpable peripheral pulses. No edema. No calf tenderness. NEUROLOGICAL: Pt oriented x 3. Cranial nerves II through XII grossly intact. Strength and sensation grossly intact. PSYCH: Normal mood, normal affect. SKIN: Warm, dry, intact. Normal turgor. No rashes or lesions. - Labs CBC & Chem 7: 10/24/16 07:04 10/24/16 07:04 Labs: Abnormal Lab Results - Last 24 Hours (Table) 10/24/16 10/24/16 Range/Units 07:04 07:04 RBC 3.36 L (3.80-5.40) m/uL MCV 101.7 H (80.0-100.0) fL BUN 5 L (7-17) mg/dL Calcium 8.1 L (8.4-10.2) mg/dL Microbiology - Last 24 Hours (Table) 10/22/16 22:10 Gram Stain - Preliminary Other - Other Wound Culture - Preliminary 10/22/16 22:10 Anaerobic Culture - Preliminary Other - Other Assessment and Plan Plan: Impression and plan: 1. Acute sigmoid diverticulitis with perforation and peritonitis status post exploratory laparotomy with Efe sigmoid resection with colostomy on 2016. Advance diet per surgery, continue IV antibiotics in the form of Levaquin and Flagyl, continue symptomatic treatment and pain management, continue IV fluids. Continue local wound care. 2. History of chronic epigastric and right upper quadrant pain radiating to right posterior shoulder associated with diarrhea. Ultrasound of liver shows fatty infiltrate. Patient will follow-up in outpatient setting for possible HIDA scan to rule out biliary dyskinesia per surgery. 3. History of GERD with esophagitis. 4. History of laparoscopic Thong fundoplication. 5. DVT prophylaxis. Continue pneumatic compression sleeves to bilateral lower extremities and encourage early ambulation. 6. GI prophylaxis. Continue IV Protonix. The above impression and plan have been discussed and directed by Dr. Nair. Eagle BENITEZ acting as scribe for Dr. Nair.
--- NOTE | 2016-10-24 13:42 | P.PN ---
Progress Note - Text The patient is afebrile. Vitals are stable. She is taking in small amounts of clear liquids. Denies nausea or vomiting. abdomen shows usual postoperative tenderness. Tissue looks fine. Stoma is healthy. Stable postop. Recommend full liquid diet TWYLA Parish encourage ambulation.
[2016-10-24] MEDS: LEVOFLOXACIN 500MG-D5W PMX 500 MG in DEXTROSE/WATER 1 100ML.BAG IVPB SCH (14:16)
[2016-10-24] MEDS: HYDROcodone/APAP 7.5-325MG 1 EACH TAB PO PRN ×2 (15:27→19:31)
[2016-10-25] MEDS: HYDROmorphone 1 MG/ML 1 ML SYRINGE IV PRN (00:09)
[2016-10-25] MEDS: HYDROcodone/APAP 7.5-325MG 1 EACH TAB PO PRN ×3 (00:15→18:25)
[2016-10-25] MEDS: ONDANSETRON 4 MG/2 ML VIAL IVP PRN ×3 (00:23→15:37)
[2016-10-25] MEDS: metroNIDAZOLE-NS PMX 500 MG in SALINE 1 100ML.BAG IVPB SCH ×4 (05:13→23:42)
[2016-10-25 07:39] LABS: Basophils % (A) 0 %; CH 32.8; CHCM 32.9; Eosinophils # (A) 0.3 k/uL (0-0.7); Eosinophils % (A) 3 %; HCT 35.9 % (34.0-46.0); HDW 2.56; HGB 11.9 gm/dL (11.4-16.0); Luc # (Auto) 0.18; Luc % (Auto) 2; Lymphocytes # (A) 1.1 k/uL (1.0-4.8); Lymphocytes % (A) 11 %; MCH 33.3 pg (25.0-35.0); MCHC 33.3 g/dL (31.0-37.0); Mean Platelet Volume 8.1; Monocytes # (A) 0.6 k/uL (0-1.0); Monocytes % (A) 6 %; Neutrophils # (A) 7.1 k/uL (1.3-7.7); Neutrophils % (A) 77 %; RBC 3.59 m/uL (3.80-5.40); RDW 12.9 % (11.5-15.5); WBC 9.2 k/uL (3.8-10.6); WBC (Perox) 9.24
[2016-10-25 07:50] LABS: Anion Gap 10 mmol/L; Blood Urea Nitrogen 5 mg/dL (7-17); Carbon Dioxide 27 mmol/L (22-30); Chloride 103 mmol/L (98-107); Glucose 83 mg/dL (74-99); Non-African American GFR(MDRD) >60 (>60 ml/min/1.73 sqM); Potassium 3.5 mmol/L (3.5-5.1); Sodium 140 mmol/L (137-145)
[2016-10-25] MEDS ORDERED: LORazepam 0.5 MG TAB PO PRN (07:58)
[2016-10-25] MEDS: LORazepam 2 MG/ML SYRINGE IV PRN (08:03)
[2016-10-25] MEDS: PANTOPRAZOLE 40 MG/10 ML VIAL IVP SCH (10:32)
[2016-10-25] MEDS: METOCLOPRAMIDE 5 MG/ML 2 ML VIAL IVP PRN ×2 (10:43→18:16)
[2016-10-25] MEDS: SODIUM CHLORIDE 0.9% 1,000 ML IV SCH ×3 (12:14→18:56)
--- NOTE | 2016-10-25 12:44 | P.PN ---
Subjective Principal diagnosis: Acute diverticulitis with perforation and peritonitis Patient is a 45-year-old female admitted with acute sigmoid colon diverticulitis with perforation and peritonitis status post exploratory laparotomy with Efe sigmoid resection with colostomy on 10/22/2016. Upon examination, patient is complaining of severe nausea without vomiting and abdominal bloating. Patient reports burping, no flatus or stool output in colostomy bag. Denies chills, fevers, shortness of breath, or chest pain. Incisional pain controlled. Patient states she ate 2 spoonfuls of her tomato soup last night. Patient is urinating without difficulty. Afebrile. No evidence of leukocytosis. Objective - Vital Signs Vital signs: Vital Signs Temp 98.1 F 10/24/16 20:00 Pulse 72 10/25/16 04:00 Resp 16 10/25/16 00:00 BP 137/88 10/24/16 20:00 Pulse Ox 91 L 10/24/16 20:00 Intake & Output 10/24/16 10/25/16 10/25/16 18:59 06:59 18:59 Intake Total 390 620 Output Total 350 600 Balance 40 20 Weight 74.843 kg Intake: Oral 390 620 Output: Urine 350 600 Uretheral (Parish) 150 Other: Voiding Method Indwelling Catheter Indwelling Catheter Toilet # Voids 1 - Exam GENERAL: Pt awake and alert, lying in bed, appears uncomfortable. HEAD: Atraumatic, normocephalic. EYES: Pupils equal, round, and reactive to light, sclera anicteric, conjunctiva are normal. ENT: Moist mucous membranes. NECK:Normal range of motion, supple without lymphadenopathy or JVD. LUNGS: Breath sounds clear to auscultation bilaterally. No wheezes, rales, or rhonchi. HEART: Heart S1, S2, no S3 or S4. Regular rate and rhythm. No murmurs, rubs or gallops. ABDOMEN: Soft, mild incisional pain, mildly distended, active bowel sounds. No guarding. No rebound. Stoma looks healthy. No flatus or stool noted in colostomy bag. Abdominal incision closed with armond with intermittent Telfa yu inserted, draining small amount of serous drainage, no erythema or purulent drainage noted. EXTREMITIES: Palpable peripheral pulses. No edema. No calf tenderness. NEUROLOGICAL: Pt oriented x 3. Cranial nerves II through XII grossly intact. Strength and sensation grossly intact. PSYCH: Anxious. SKIN: Warm, dry, intact. Normal turgor. No rashes or lesions. - Labs CBC & Chem 7: 10/25/16 06:58 10/25/16 06:58 Labs: Abnormal Lab Results - Last 24 Hours (Table) 10/25/16 10/25/16 Range/Units 06:58 06:58 RBC 3.59 L (3.80-5.40) m/uL BUN 5 L (7-17) mg/dL Calcium 8.0 L (8.4-10.2) mg/dL Microbiology - Last 24 Hours (Table) 10/22/16 22:10 Gram Stain - Preliminary Other - Other Wound Culture - Preliminary Assessment and Plan Plan: Impression and plan: 1. Acute sigmoid diverticulitis with perforation and peritonitis status post exploratory laparotomy with Efe sigmoid resection with colostomy on 2016. Continue diet per surgery, continue IV antibiotics in the form of Levaquin and Flagyl, continue symptomatic treatment and pain management, continue IV fluids. Continue local wound care. 2. Abdominal bloating and nausea, suspect ileus. Continue surgical management. 2. History of chronic epigastric and right upper quadrant pain radiating to right posterior shoulder associated with diarrhea. Ultrasound of liver shows fatty infiltrate. Patient will follow-up in outpatient setting for possible HIDA scan to rule out biliary dyskinesia per surgery. 3. History of GERD with esophagitis. 4. History of laparoscopic Thong fundoplication. 5. DVT prophylaxis. Continue pneumatic compression sleeves to bilateral lower extremities and encourage early ambulation. 6. GI prophylaxis. Continue IV Protonix. 7. Pneumonia prophylaxis. Continue incentive spirometry 10 times an hour while awake. Continue to monitor patient. Continue current medications. Continue symptomatic treatment and pain management. Continue to follow with surgical service. Repeat lab work in a.m. The above impression and plan have been discussed and directed by Dr. Nair. Eagle BENITEZ acting as scribe for Dr. Nair.
[2016-10-25] MEDS: LEVOFLOXACIN 500MG-D5W PMX 500 MG in DEXTROSE/WATER 1 100ML.BAG IVPB SCH (14:45)
--- NOTE | 2016-10-25 15:35 | P.PN ---
Subjective Principal diagnosis: Acute diverticulitis with perforation and peritonitis Patient is a 45-year-old female admitted with acute sigmoid colon diverticulitis with perforation and peritonitis status post exploratory laparotomy with Efe sigmoid resection with colostomy on 10/22/2016. Upon examination, patient is complaining of severe nausea without vomiting and abdominal bloating. Patient reports burping, no flatus or stool output in colostomy bag. Denies chills, fevers, shortness of breath, or chest pain. Incisional pain controlled. Patient states she ate 2 spoonfuls of her tomato soup last night. Patient is urinating without difficulty. Afebrile. No evidence of leukocytosis. Objective - Vital Signs Vital signs: Vital Signs Temp 98.6 F 10/25/16 15:00 Pulse 98 10/25/16 15:00 Resp 16 10/25/16 15:00 BP 140/86 10/25/16 15:00 Pulse Ox 93 L 10/25/16 15:00 Intake & Output 10/24/16 10/25/16 10/25/16 18:59 06:59 18:59 Intake Total 390 620 20 Output Total 350 600 Balance 40 20 20 Weight 74.843 kg Intake: Oral 390 620 20 Output: Urine 350 600 Uretheral (Parish) 150 Other: Voiding Method Indwelling Catheter Indwelling Catheter Toilet # Voids 1 - Exam GENERAL: Pt awake and alert, lying in bed, appears uncomfortable. LUNGS: Breath sounds clear to auscultation bilaterally. No wheezes, rales, or rhonchi. HEART: Heart S1, S2, no S3 or S4. Regular rate and rhythm. No murmurs, rubs or gallops. ABDOMEN: Soft, mild incisional pain, mildly distended, active bowel sounds. No guarding. No rebound. Stoma looks healthy. No flatus or stool noted in colostomy bag. Abdominal incision closed with armond with intermittent Telfa yu inserted, draining small amount of serous drainage, no erythema or purulent drainage noted. EXTREMITIES: Palpable peripheral pulses. NEUROLOGICAL: Pt oriented x 3. - Labs CBC & Chem 7: 10/25/16 06:58 10/25/16 06:58 Labs: Abnormal Lab Results - Last 24 Hours (Table) 10/25/16 10/25/16 Range/Units 06:58 06:58 RBC 3.59 L (3.80-5.40) m/uL BUN 5 L (7-17) mg/dL Calcium 8.0 L (8.4-10.2) mg/dL Microbiology - Last 24 Hours (Table) 10/22/16 22:10 Gram Stain - Final Other - Other Wound Culture - Final Assessment and Plan Plan: Impression and plan: 1. Acute sigmoid diverticulitis with perforation and peritonitis status post exploratory laparotomy with Efe sigmoid resection with colostomy on 2016. Continue IV antibiotics in the form of Levaquin and Flagyl, continue symptomatic treatment and pain management, continue IV fluids. Continue local wound care. 2. Abdominal bloating and nausea, suspect ileus. Place patient on clear liquid diet. Encouraged ambulation. Add Reglan. 2. History of chronic epigastric and right upper quadrant pain radiating to right posterior shoulder associated with diarrhea. Ultrasound of liver shows fatty infiltrate. Patient will follow-up in outpatient setting for possible HIDA scan to rule out biliary dyskinesia. 3. History of GERD with esophagitis. 4. History of laparoscopic Thong fundoplication. 5. DVT prophylaxis. Continue pneumatic compression sleeves to bilateral lower extremities and encourage early ambulation. 6. GI prophylaxis. Continue IV Protonix. 7. Pneumonia prophylaxis. Continue incentive spirometry 10 times an hour while awake. Continue to monitor patient. Continue current medications. Continue symptomatic treatment and pain management. Continue to follow with medical service. Repeat lab work in a.m. The above impression and plan have been discussed and directed by Dr. Medina. Eagle BENITEZ acting as scribe for Dr. Medina.
[2016-10-25] MEDS ORDERED: ACETAMINOPHEN IV (For NPO) 1,000 MG in EMPTY BAG 1 BAG IVPB PRN (22:16)
[2016-10-26] MEDS: ONDANSETRON 4 MG/2 ML VIAL IVP PRN ×2 (00:07→09:45)
[2016-10-26] MEDS: METOCLOPRAMIDE 5 MG/ML 2 ML VIAL IVP PRN ×2 (01:53→07:13)
[2016-10-26] MEDS: metroNIDAZOLE-NS PMX 500 MG in SALINE 1 100ML.BAG IVPB SCH ×3 (05:28→17:55)
[2016-10-26] MEDS: SODIUM CHLORIDE 0.9% 1,000 ML IV SCH ×3 (05:28→21:52)
[2016-10-26 07:20] LABS: Basophils # (A) 0.1 k/uL (0-0.2); Basophils % (A) 1 %; CH 32.7; CHCM 32.6; Eosinophils # (A) 0.2 k/uL (0-0.7); Eosinophils % (A) 2 %; HCT 38.3 % (34.0-46.0); HGB 12.6 gm/dL (11.4-16.0); Luc # (Auto) 0.41; Luc % (Auto) 4; Lymphocytes # (A) 1.1 k/uL (1.0-4.8); Lymphocytes % (A) 11 %; MCH 33.3 pg (25.0-35.0); MCV 100.7 fL (80.0-100.0); Mean Platelet Volume 8.7; Monocytes # (A) 0.6 k/uL (0-1.0); Monocytes % (A) 6 %; Neutrophils # (A) 7.4 k/uL (1.3-7.7); Neutrophils % (A) 76 %; WBC 9.8 k/uL (3.8-10.6); WBC (Perox) 10.07
[2016-10-26 07:23] LABS: Anion Gap 14 mmol/L; Blood Urea Nitrogen 3 mg/dL (7-17); Calcium 8.2 mg/dL (8.4-10.2); Carbon Dioxide 21 mmol/L (22-30); Chloride 105 mmol/L (98-107); Glucose 94 mg/dL (74-99); Magnesium 1.8 mg/dL (1.6-2.3); Non-African American GFR(MDRD) >60 (>60 ml/min/1.73 sqM); Phosphorous 3.1 mg/dL (2.5-4.5); Potassium 3.6 mmol/L (3.5-5.1); Sodium 140 mmol/L (137-145)
[2016-10-26] MEDS: PANTOPRAZOLE 40 MG/10 ML VIAL IVP SCH (07:30)
--- NOTE | 2016-10-26 13:11 | XR ---
EXAMINATION TYPE: XR abdomen 2V DATE OF EXAM: 10/26/2016 12:57 PM COMPARISON: NONE HISTORY: Pain TECHNIQUE: One view abdominal series FINDINGS: The osseous structures are intact. The bowel gas pattern is nonspecific. Markedly dilated stomach an d small bowel are seen. Surgical armond noted. IMPRESSION: 1. Findings are highly suspicious for a small bowel obstruction high-grade areas correlate clinically . Severe ileus also a consideration.
--- NOTE | 2016-10-26 14:28 | P.PN ---
Subjective Patient is a 45-year-old female admitted with acute sigmoid colon diverticulitis with perforation and peritonitis status post exploratory laparotomy with Efe sigmoid resection with colostomy on 10/22/2016. Upon examination, patient is complaining of severe nausea with vomiting and abdominal bloating. Patient reports burping, no flatus or stool output in colostomy bag. Complains of sweats. Incisional pain controlled. Patient is urinating without difficulty. Afebrile. No evidence of leukocytosis. Objective - Vital Signs Vital signs: Vital Signs Temp 98.4 F 10/26/16 08:00 Pulse 77 10/26/16 08:00 Resp 16 10/26/16 08:00 BP 168/99 10/26/16 08:00 Pulse Ox 95 10/26/16 08:00 Intake & Output 10/25/16 10/26/16 10/26/16 18:59 06:59 18:59 Intake Total 20 Output Total 300 Balance 20 -300 Weight 74.843 kg Intake: Oral 20 Output: Urine 300 Other: Voiding Method Toilet Toilet Toilet # Voids 1 1 - Exam GENERAL: Pt awake and alert, sitting up in a chair, appears uncomfortable. LUNGS: Breath sounds clear to auscultation bilaterally. No wheezes, rales, or rhonchi. HEART: Heart S1, S2, no S3 or S4. Regular rate and rhythm. No murmurs, rubs or gallops. ABDOMEN: Soft, mild incisional pain, distended, absent bowel sounds. No guarding. No rebound. Stoma looks healthy. No flatus or stool noted in colostomy bag. Abdominal incision closed with armond, draining small amount of serous drainage, no erythema or purulent drainage noted. EXTREMITIES: Palpable peripheral pulses. NEUROLOGICAL: Pt oriented x 3. - Labs CBC & Chem 7: 10/26/16 06:45 10/26/16 06:45 Labs: Abnormal Lab Results - Last 24 Hours (Table) 10/26/16 10/26/16 Range/Units 06:45 06:45 MCV 100.7 H (80.0-100.0) fL Carbon Dioxide 21 L (22-30) mmol/L BUN 3 L (7-17) mg/dL Calcium 8.2 L (8.4-10.2) mg/dL Microbiology - Last 24 Hours (Table) 10/22/16 22:10 Anaerobic Culture - Preliminary Other - Other Anaerobic Gm Positive Bacill 10/22/16 22:10 Gram Stain - Final Other - Other Wound Culture - Final Assessment and Plan Plan: Impression and plan: 1. Nausea, vomiting with associated abdominal pain, suspect ileus. Obtain 2 view abdominal x-ray. Consider nasogastric tube insertion pending result. Continue Zofran or Reglan. Continue nothing by mouth status. 2. Acute sigmoid diverticulitis with perforation and peritonitis status post exploratory laparotomy with Efe sigmoid resection with colostomy on 2016. Continue IV antibiotics in the form of Levaquin and Flagyl, continue symptomatic treatment and pain management, continue IV fluids. Continue local wound care. 3. History of chronic epigastric and right upper quadrant pain radiating to right posterior shoulder associated with diarrhea. Ultrasound of liver shows fatty infiltrate. Patient will follow-up in outpatient setting for possible HIDA scan to rule out biliary dyskinesia. 3. History of GERD with esophagitis. 4. History of laparoscopic Thong fundoplication. 5. DVT prophylaxis. Continue pneumatic compression sleeves to bilateral lower extremities and encourage early ambulation. 6. GI prophylaxis. Continue IV Protonix. 7. Pneumonia prophylaxis. Continue incentive spirometry 10 times an hour while awake. Continue to monitor patient. Continue current medications. Continue symptomatic treatment and pain management. Continue to follow with medical service. Repeat lab work in a.m. The above impression and plan have been discussed and directed by Dr. Medina. Eagle BENITEZ acting as scribe for Dr. Medina.
--- NOTE | 2016-10-26 15:08 | XR ---
EXAMINATION TYPE: XR chest 1V portable DATE OF EXAM: 10/26/2016 2:52 PM COMPARISON: NONE HISTORY: NG placement TECHNIQUE: Single frontal view of the chest is obtained. FINDINGS: Right lower lobe infiltrate and small effusion. NG tube seen extending into left upper edin drant of the abdomen likely within the gastric fundus. Left lung clear. IMPRESSION: NG tube appears in good position. Right lower lobe infiltrate and small effusion.
[2016-10-26] MEDS ORDERED: BENZOCAINE SPRAY 100 APPLIC/CAN MUCOUS MEM PRN (15:17)
[2016-10-26] MEDS: LEVOFLOXACIN 500MG-D5W PMX 500 MG in DEXTROSE/WATER 1 100ML.BAG IVPB SCH (15:29)
--- NOTE | 2016-10-26 15:32 | P.PN ---
Subjective Patient is a 45-year-old female admitted with acute sigmoid colon diverticulitis with perforation and peritonitis status post exploratory laparotomy with Efe sigmoid resection with colostomy on 10/22/2016. Upon examination, patient is complaining of severe nausea with vomiting and abdominal bloating. Patient reports burping, no flatus or stool output in colostomy bag. Complains of sweats. Incisional pain controlled. Patient is urinating without difficulty. Afebrile. No evidence of leukocytosis. Objective - Vital Signs Vital signs: Vital Signs Temp 98.9 F 10/26/16 15:00 Pulse 78 10/26/16 15:00 Resp 16 10/26/16 15:00 BP 147/91 10/26/16 15:00 Pulse Ox 97 10/26/16 15:00 Intake & Output 10/25/16 10/26/16 10/26/16 18:59 06:59 18:59 Intake Total 20 Output Total 300 Balance 20 -300 Weight 74.843 kg Intake: Oral 20 Output: Urine 300 Other: Voiding Method Toilet Toilet Toilet # Voids 1 1 - Exam GENERAL: Pt awake and alert, lying in bed, appears uncomfortable. HEAD: Atraumatic, normocephalic. EYES: Pupils equal, round, and reactive to light, sclera anicteric, conjunctiva are normal. ENT: Moist mucous membranes. NECK:Normal range of motion, supple without lymphadenopathy or JVD. LUNGS: Breath sounds clear to auscultation bilaterally. No wheezes, rales, or rhonchi. HEART: Heart S1, S2, no S3 or S4. Regular rate and rhythm. No murmurs, rubs or gallops. ABDOMEN: Soft, mild incisional pain, mildly distended, absent bowel sounds. No guarding. No rebound. Stoma looks healthy. No flatus or stool noted in colostomy bag. Abdominal dressing dry and intact. EXTREMITIES: Palpable peripheral pulses. No edema. No calf tenderness. NEUROLOGICAL: Pt oriented x 3. Cranial nerves II through XII grossly intact. Strength and sensation grossly intact. PSYCH: Anxious. SKIN: Warm, dry, intact. Normal turgor. No rashes or lesions. - Labs CBC & Chem 7: 10/26/16 06:45 10/26/16 06:45 Labs: Abnormal Lab Results - Last 24 Hours (Table) 10/26/16 10/26/16 Range/Units 06:45 06:45 MCV 100.7 H (80.0-100.0) fL Carbon Dioxide 21 L (22-30) mmol/L BUN 3 L (7-17) mg/dL Calcium 8.2 L (8.4-10.2) mg/dL Microbiology - Last 24 Hours (Table) 10/22/16 22:10 Anaerobic Culture - Preliminary Other - Other Anaerobic Gm Positive Bacill 10/22/16 22:10 Gram Stain - Final Other - Other Wound Culture - Final Assessment and Plan Plan: Impression and plan: 1. Nausea, vomiting with associated abdominal pain, suspect ileus. Continue surgical management by surgical service. 2. Acute sigmoid diverticulitis with perforation and peritonitis status post exploratory laparotomy with Efe sigmoid resection with colostomy on 2016. Continue IV antibiotics in the form of Levaquin and Flagyl, continue symptomatic treatment and pain management, continue IV fluids. Continue local wound care. 3. History of chronic epigastric and right upper quadrant pain radiating to right posterior shoulder associated with diarrhea. Ultrasound of liver shows fatty infiltrate. Patient will follow-up in outpatient setting for possible HIDA scan to rule out biliary dyskinesia. 3. History of GERD with esophagitis. 4. History of laparoscopic Thong fundoplication. 5. DVT prophylaxis. Continue pneumatic compression sleeves to bilateral lower extremities and encourage early ambulation. 6. GI prophylaxis. Continue IV Protonix. 7. Pneumonia prophylaxis. Continue incentive spirometry 10 times an hour while awake. Continue to monitor patient. Continue current medications. Continue symptomatic treatment and pain management. Continue to follow with surgical service. Repeat lab work in a.m. The above impression and plan have been discussed and directed by Dr. Nair. Eagle BENITEZ acting as scribe for Dr. Nair.
[2016-10-26] MEDS: KETOROLAC 30 MG/ML 1 ML VIAL IVP PRN (16:24)
[2016-10-26] MEDS: HEPARIN SODIUM,PORCINE 5,000 UNIT/ML 1 ML VIAL SQ SCH (22:27)
[2016-10-27] MEDS: metroNIDAZOLE-NS PMX 500 MG in SALINE 1 100ML.BAG IVPB SCH ×4 (00:07→18:09)
[2016-10-27] MEDS: ONDANSETRON 4 MG/2 ML VIAL IVP PRN ×2 (00:08→14:23)
[2016-10-27] MEDS: KETOROLAC 30 MG/ML 1 ML VIAL IVP PRN ×3 (00:08→19:38)
[2016-10-27] MEDS: SODIUM CHLORIDE 0.9% 1,000 ML IV SCH ×2 (00:09→08:23)
[2016-10-27 07:50] LABS: CH 32.3; CHCM 31.7; HCT 33.9 % (34.0-46.0); HDW 2.61; HGB 11.2 gm/dL (11.4-16.0); MCH 33.7 pg (25.0-35.0); MCV 102.2 fL (80.0-100.0); Macrocytosis Slight; RBC 3.31 m/uL (3.80-5.40); RDW 13.3 % (11.5-15.5); WBC 9.6 k/uL (3.8-10.6); WBC (Perox) 9.11
[2016-10-27 07:56] LABS: ALT 21 U/L (9-52); AST 29 U/L (14-36); Alkaline Phosphatase 31 U/L (38-126); Anion Gap 13 mmol/L; Blood Urea Nitrogen 7 mg/dL (7-17); Carbon Dioxide 21 mmol/L (22-30); Chloride 106 mmol/L (98-107); Glucose 80 mg/dL (74-99); Non-African American GFR(MDRD) >60 (>60 ml/min/1.73 sqM); Sodium 140 mmol/L (137-145); Total Bilirubin 0.7 mg/dL (0.2-1.3)
[2016-10-27 08:10] LABS: Potassium 3.5 mmol/L (3.5-5.1)
[2016-10-27] MEDS: PANTOPRAZOLE 40 MG/10 ML VIAL IVP SCH (08:20)
[2016-10-27] MEDS: HEPARIN SODIUM,PORCINE 5,000 UNIT/ML 1 ML VIAL SQ SCH ×2 (08:21→19:39)
[2016-10-27 08:57] LABS: Add Differential Manual Differential
[2016-10-27 08:59] LABS: Nucleated Red Blood Cells 0 /100 WBC (0-0); Total Cells Counted 100
[2016-10-27] MEDS: METOCLOPRAMIDE 5 MG/ML 2 ML VIAL IVP SCH ×2 (10:39→19:39)
--- NOTE | 2016-10-27 13:13 | P.PN ---
Subjective Patient is a 45-year-old female admitted with acute sigmoid colon diverticulitis with perforation and peritonitis status post exploratory laparotomy with Efe sigmoid resection with colostomy on 10/22/2016. Yesterday, nasogastric tube was inserted for postop ileus. Today, patient is feeling better. Patient states that nasogastric tube is bothering her throat but the nausea and vomiting has resolved. Patient feels less bloated. No flatus or stool output in colostomy bag. Incisional pain controlled. Patient is urinating without difficulty. Afebrile. No evidence of leukocytosis. Objective - Vital Signs Vital signs: Vital Signs Temp 97.7 F 10/27/16 07:00 Pulse 79 10/27/16 07:00 Resp 16 10/27/16 07:00 BP 142/86 10/27/16 07:00 Pulse Ox 97 10/27/16 07:00 Intake & Output 10/26/16 10/27/16 10/27/16 18:59 06:59 18:59 Output Total 600 Balance -600 Weight 74.843 kg 74.843 kg Output: Urine 600 Other: Voiding Method Toilet Toilet # Voids 1 - Exam GENERAL: Pt awake and alert, sitting up in a chair, in no acute distress. LUNGS: Breath sounds clear to auscultation bilaterally. No wheezes, rales, or rhonchi. HEART: Heart S1, S2, no S3 or S4. Regular rate and rhythm. No murmurs, rubs or gallops. ABDOMEN: Soft, mild incisional pain, nondistended, hypoactive bowel sounds. No guarding. No rebound. Stoma looks healthy. No flatus or stool noted in colostomy bag. Abdominal incision dry and approximated, no erythema or purulent drainage, armond intact. NEUROLOGICAL: Pt oriented x 3. - Labs CBC & Chem 7: 10/27/16 06:42 10/27/16 06:42 Labs: Abnormal Lab Results - Last 24 Hours (Table) 10/27/16 10/27/16 Range/Units 06:42 06:42 RBC 3.31 L (3.80-5.40) m/uL Hgb 11.2 L (11.4-16.0) gm/dL Hct 33.9 L (34.0-46.0) % MCV 102.2 H (80.0-100.0) fL Carbon Dioxide 21 L (22-30) mmol/L Calcium 8.0 L (8.4-10.2) mg/dL Alkaline Phosphatase 31 L (38-126) U/L Total Protein 5.0 L (6.3-8.2) g/dL Albumin 2.4 L (3.5-5.0) g/dL Microbiology - Last 24 Hours (Table) 10/22/16 22:10 Anaerobic Culture - Preliminary Other - Other Anaerobic Gm Positive Bacill Assessment and Plan Plan: Impression and plan: 1. Postoperative ileus, expected. Continue nothing by mouth, continue nasogastric tube for small bowel decompression, continue Reglan, encourage ambulation. 2. Acute sigmoid diverticulitis with perforation and peritonitis status post exploratory laparotomy with Efe sigmoid resection with colostomy on 2016. Continue IV antibiotics in the form of Levaquin and Flagyl, continue symptomatic treatment and pain management, continue IV fluids. Continue local wound care. 3. History of chronic epigastric and right upper quadrant pain radiating to right posterior shoulder associated with diarrhea. Ultrasound of liver shows fatty infiltrate. Patient will follow-up in outpatient setting for possible HIDA scan to rule out biliary dyskinesia. 3. History of GERD with esophagitis. 4. History of laparoscopic Thong fundoplication. 5. DVT prophylaxis. Continue pneumatic compression sleeves to bilateral lower extremities and encourage early ambulation. 6. GI prophylaxis. Continue IV Protonix. 7. Pneumonia prophylaxis. Continue incentive spirometry 10 times an hour while awake. Continue to monitor patient. Continue current medications. Continue symptomatic treatment and pain management. Continue to follow with medical service. Repeat lab work in a.m. The above impression and plan have been discussed and directed by Dr. Medina. Eagle BENITEZ acting as scribe for Dr. Medina.
--- NOTE | 2016-10-27 13:42 | P.PN ---
Subjective Patient is a 45-year-old female admitted with acute sigmoid colon diverticulitis with perforation and peritonitis status post exploratory laparotomy with Efe sigmoid resection with colostomy on 10/22/2016. Yesterday, nasogastric tube was inserted for postop ileus. Today, patient is feeling better. Patient states that nasogastric tube is bothering her throat but the nausea and vomiting has resolved. Patient feels less bloated. No flatus or stool output in colostomy bag. Incisional pain controlled. Patient is urinating without difficulty. Afebrile. No evidence of leukocytosis. Objective - Vital Signs Vital signs: Vital Signs Temp 97.7 F 10/27/16 07:00 Pulse 79 10/27/16 07:00 Resp 16 10/27/16 07:00 BP 142/86 10/27/16 07:00 Pulse Ox 97 10/27/16 07:00 Intake & Output 10/26/16 10/27/16 10/27/16 18:59 06:59 18:59 Output Total 600 Balance -600 Weight 74.843 kg 74.843 kg Output: Urine 600 Other: Voiding Method Toilet Toilet # Voids 1 - Exam GENERAL: Pt awake and alert, lying in bed, appears uncomfortable. HEAD: Atraumatic, normocephalic. EYES: Pupils equal, round, and reactive to light, sclera anicteric, conjunctiva are normal. ENT: Moist mucous membranes. NECK:Normal range of motion, supple without lymphadenopathy or JVD. LUNGS: Breath sounds clear to auscultation bilaterally. No wheezes, rales, or rhonchi. HEART: Heart S1, S2, no S3 or S4. Regular rate and rhythm. No murmurs, rubs or gallops. ABDOMEN: Soft, mild incisional pain, mildly distended, absent bowel sounds. No guarding. No rebound. Stoma looks healthy. No flatus or stool noted in colostomy bag. Abdominal dressing dry and intact. EXTREMITIES: Palpable peripheral pulses. No edema. No calf tenderness. NEUROLOGICAL: Pt oriented x 3. Cranial nerves II through XII grossly intact. Strength and sensation grossly intact. PSYCH: Anxious. SKIN: Warm, dry, intact. Normal turgor. No rashes or lesions. - Labs CBC & Chem 7: 10/27/16 06:42 10/27/16 06:42 Labs: Abnormal Lab Results - Last 24 Hours (Table) 10/27/16 10/27/16 Range/Units 06:42 06:42 RBC 3.31 L (3.80-5.40) m/uL Hgb 11.2 L (11.4-16.0) gm/dL Hct 33.9 L (34.0-46.0) % MCV 102.2 H (80.0-100.0) fL Carbon Dioxide 21 L (22-30) mmol/L Calcium 8.0 L (8.4-10.2) mg/dL Alkaline Phosphatase 31 L (38-126) U/L Total Protein 5.0 L (6.3-8.2) g/dL Albumin 2.4 L (3.5-5.0) g/dL Microbiology - Last 24 Hours (Table) 10/22/16 22:10 Anaerobic Culture - Preliminary Other - Other Anaerobic Gm Positive Bacill Assessment and Plan Plan: Impression and plan: 1. Postoperative ileus, expected. Continue surgical management by surgical service. 2. Acute sigmoid diverticulitis with perforation and peritonitis status post exploratory laparotomy with Efe sigmoid resection with colostomy on 2016. Continue IV antibiotics in the form of Levaquin and Flagyl, continue symptomatic treatment and pain management, continue IV fluids. Continue local wound care. 3. History of chronic epigastric and right upper quadrant pain radiating to right posterior shoulder associated with diarrhea. Ultrasound of liver shows fatty infiltrate. Patient will follow-up in outpatient setting for possible HIDA scan to rule out biliary dyskinesia. 3. History of GERD with esophagitis. 4. History of laparoscopic Thong fundoplication. 5. DVT prophylaxis. Continue pneumatic compression sleeves to bilateral lower extremities and encourage early ambulation. 6. GI prophylaxis. Continue IV Protonix. 7. Pneumonia prophylaxis. Continue incentive spirometry 10 times an hour while awake. Continue to monitor patient. Continue current medications. Continue symptomatic treatment and pain management. Continue to follow with surgical service. Repeat lab work in a.m. The above impression and plan have been discussed and directed by Dr. Nair. Eagle BENITEZ acting as scribe for Dr. Nair.
[2016-10-27] MEDS: LEVOFLOXACIN 500MG-D5W PMX 500 MG in DEXTROSE/WATER 1 100ML.BAG IVPB SCH (15:46)
[2016-10-28] MEDS: SODIUM CHLORIDE 0.9% 1,000 ML IV SCH ×5 (01:03→17:54)
[2016-10-28] MEDS: metroNIDAZOLE-NS PMX 500 MG in SALINE 1 100ML.BAG IVPB SCH ×5 (01:03→23:39)
[2016-10-28] MEDS: METOCLOPRAMIDE 5 MG/ML 2 ML VIAL IVP SCH ×5 (01:04→23:39)
[2016-10-28 07:32] LABS: Basophils # (A) 0.1 k/uL (0-0.2); Basophils % (A) 1 %; CH 32.9; CHCM 33.2; Eosinophils # (A) 0.3 k/uL (0-0.7); Eosinophils % (A) 4 %; HCT 32.6 % (34.0-46.0); HDW 2.71; HGB 10.6 gm/dL (11.4-16.0); Luc # (Auto) 0.23; Luc % (Auto) 3; Lymphocytes # (A) 1.6 k/uL (1.0-4.8); Lymphocytes % (A) 21 %; MCH 32.4 pg (25.0-35.0); MCHC 32.5 g/dL (31.0-37.0); MCV 99.5 fL (80.0-100.0); Mean Platelet Volume 8.5; Monocytes # (A) 0.6 k/uL (0-1.0); Monocytes % (A) 8 %; Neutrophils # (A) 4.8 k/uL (1.3-7.7); Neutrophils % (A) 63 %; RBC 3.27 m/uL (3.80-5.40); RDW 13.4 % (11.5-15.5); WBC 7.6 k/uL (3.8-10.6); WBC (Perox) 8.28
[2016-10-28 07:43] LABS: Anion Gap 10 mmol/L; Blood Urea Nitrogen 6 mg/dL (7-17); Calcium 8.1 mg/dL (8.4-10.2); Carbon Dioxide 24 mmol/L (22-30); Chloride 105 mmol/L (98-107); Glucose 70 mg/dL (74-99); Non-African American GFR(MDRD) >60 (>60 ml/min/1.73 sqM); Potassium 3.5 mmol/L (3.5-5.1); Sodium 139 mmol/L (137-145)
[2016-10-28] MEDS: HEPARIN SODIUM,PORCINE 5,000 UNIT/ML 1 ML VIAL SQ SCH ×2 (09:52→20:32)
[2016-10-28] MEDS: PANTOPRAZOLE 40 MG/10 ML VIAL IVP SCH (09:52)
--- NOTE | 2016-10-28 12:52 | P.PN ---
Subjective Principal diagnosis: Acute diverticulitis with perforation and peritonitis Patient is a 45-year-old female admitted with acute sigmoid colon diverticulitis with perforation and peritonitis status post exploratory laparotomy with Efe sigmoid resection with colostomy on 10/22/2016. Postoperatively, patient developed an ileus and nasogastric tube was inserted. Upon examination, patient reports flatus and bowel sounds. Patient states she feels a lot better than yesterday. Denies chills, fevers, nausea, vomiting. Incisional pain controlled. Patient is urinating without difficulty. Afebrile. No evidence of leukocytosis. Objective - Vital Signs Vital signs: Vital Signs Temp 97.9 F 10/28/16 07:00 Pulse 72 10/28/16 07:00 Resp 16 10/28/16 07:00 BP 140/84 10/28/16 07:00 Pulse Ox 98 10/28/16 07:00 Intake & Output 10/27/16 10/28/16 10/28/16 18:59 06:59 18:59 Intake Total 660 Output Total 200 Balance 460 Weight 74.843 kg Intake: IV 660 Sodium Chloride 0.9% 1, 560 000 ml @ 80 mls/hr IV . [id number] FRACISCO Rx#:[id number] metroNIDAZOLE-NS PMX 500 100 mg In Saline 1 100ml.bag @ 100 mls/hr IVPB Q6HR [facility]ISCO Rx#:[id number] Output: Gastric Drainage 200 Other: Voiding Method Toilet - Exam GENERAL: Pt awake and alert, lying in bed, appears uncomfortable. HEAD: Atraumatic, normocephalic. EYES: Pupils equal, round, and reactive to light, sclera anicteric, conjunctiva are normal. ENT: Moist mucous membranes. NECK:Normal range of motion, supple without lymphadenopathy or JVD. LUNGS: Breath sounds clear to auscultation bilaterally. No wheezes, rales, or rhonchi. HEART: Heart S1, S2, no S3 or S4. Regular rate and rhythm. No murmurs, rubs or gallops. ABDOMEN: Soft, mild incisional pain, mildly distended, absent bowel sounds. No guarding. No rebound. Stoma looks healthy. Flatus noted in colostomy bag was small amount of mucoid drainage.. Abdominal incision approximated, armond intact, no erythema or purulent drainage. EXTREMITIES: Palpable peripheral pulses. No edema. No calf tenderness. NEUROLOGICAL: Pt oriented x 3. Cranial nerves II through XII grossly intact. Strength and sensation grossly intact. PSYCH: Calm. SKIN: Warm, dry, intact. Normal turgor. No rashes or lesions. - Labs CBC & Chem 7: 10/28/16 06:45 10/28/16 06:45 Labs: Abnormal Lab Results - Last 24 Hours (Table) 10/28/16 10/28/16 Range/Units 06:45 06:45 RBC 3.27 L (3.80-5.40) m/uL Hgb 10.6 L (11.4-16.0) gm/dL Hct 32.6 L (34.0-46.0) % BUN 6 L (7-17) mg/dL Glucose 70 L (74-99) mg/dL Calcium 8.1 L (8.4-10.2) mg/dL Microbiology - Last 24 Hours (Table) 10/22/16 22:10 Anaerobic Culture - Final Other - Other Anaerobic Gm Positive Bacill Assessment and Plan Plan: Impression and plan: 1. Postoperative ileus, expected, improved. Continue surgical management by surgical service. Nasogastric tube will be removed. Patient will be started on a clear liquid diet. 2. Acute sigmoid diverticulitis with perforation and peritonitis status post exploratory laparotomy with Efe sigmoid resection with colostomy on 2016. Continue IV antibiotics in the form of Levaquin and Flagyl, continue symptomatic treatment and pain management, continue IV fluids. Continue local wound care. 3. History of chronic epigastric and right upper quadrant pain radiating to right posterior shoulder associated with diarrhea. Ultrasound of liver shows fatty infiltrate. Patient will follow-up in outpatient setting for possible HIDA scan to rule out biliary dyskinesia. 3. History of GERD with esophagitis. 4. History of laparoscopic Thong fundoplication. 5. DVT prophylaxis. Continue pneumatic compression sleeves to bilateral lower extremities and encourage early ambulation. 6. GI prophylaxis. Continue IV Protonix. 7. Pneumonia prophylaxis. Continue incentive spirometry 10 times an hour while awake. Continue to monitor patient. Continue current medications. Continue symptomatic treatment and pain management. Continue to follow with surgical service. Repeat lab work in a.m. The above impression and plan have been discussed and directed by Dr. Nair. Eagle BENITEZ acting as scribe for Dr. Nair.
[2016-10-28] MEDS: LEVOFLOXACIN 500MG-D5W PMX 500 MG in DEXTROSE/WATER 1 100ML.BAG IVPB SCH (15:20)
--- NOTE | 2016-10-28 16:42 | P.PN ---
Subjective Principal diagnosis: Acute diverticulitis with perforation and peritonitis Patient is a 45-year-old female admitted with acute sigmoid colon diverticulitis with perforation and peritonitis status post exploratory laparotomy with Efe sigmoid resection with colostomy on 10/22/2016. Postoperatively, patient developed an ileus and nasogastric tube was inserted. Upon examination, patient reports flatus and bowel sounds. Patient states she feels a lot better than yesterday. Denies chills, fevers, nausea, vomiting. Incisional pain controlled. Patient is urinating without difficulty. Afebrile. No evidence of leukocytosis. Objective - Vital Signs Vital signs: Vital Signs Temp 99.1 F 10/28/16 15:00 Pulse 73 10/28/16 15:00 Resp 16 10/28/16 15:00 BP 142/81 10/28/16 15:00 Pulse Ox 99 10/28/16 15:00 Intake & Output 10/27/16 10/28/16 10/28/16 18:59 06:59 18:59 Intake Total 660 Output Total 200 Balance 460 Weight 74.843 kg Intake: IV 660 Sodium Chloride 0.9% 1, 560 000 ml @ 80 mls/hr IV . [id number] [facility]CO Rx#:[id number] metroNIDAZOLE-NS PMX 500 100 mg In Saline 1 100ml.bag @ 100 mls/hr IVPB Q6HR [facility] Rx#:[id number] Output: Gastric Drainage 200 Other: Voiding Method Toilet - Exam GENERAL: Pt awake and alert, sitting up in bed, in no apparent distress. LUNGS: Breath sounds clear to auscultation bilaterally. No wheezes, rales, or rhonchi. HEART: Heart S1, S2, no S3 or S4. Regular rate and rhythm. No murmurs, rubs or gallops. ABDOMEN: Soft, mild incisional pain, mildly distended, active bowel sounds. No guarding. No rebound. Stoma looks healthy. Flatus noted in colostomy bag was small amount of mucoid drainage.. Abdominal incision approximated, armond intact, no erythema or purulent drainage. EXTREMITIES: Palpable peripheral pulses. NEUROLOGICAL: Pt oriented x 3. - Labs CBC & Chem 7: 10/28/16 06:45 10/28/16 06:45 Labs: Abnormal Lab Results - Last 24 Hours (Table) 10/28/16 10/28/16 Range/Units 06:45 06:45 RBC 3.27 L (3.80-5.40) m/uL Hgb 10.6 L (11.4-16.0) gm/dL Hct 32.6 L (34.0-46.0) % BUN 6 L (7-17) mg/dL Glucose 70 L (74-99) mg/dL Calcium 8.1 L (8.4-10.2) mg/dL Microbiology - Last 24 Hours (Table) 10/22/16 22:10 Anaerobic Culture - Final Other - Other Anaerobic Gm Positive Bacill Assessment and Plan Plan: Impression and plan: 1. Postoperative ileus, expected, improved. Nasogastric tube will be removed. Patient will be started on a clear liquid diet. 2. Acute sigmoid diverticulitis with perforation and peritonitis status post exploratory laparotomy with Efe sigmoid resection with colostomy on 2016. Continue IV antibiotics in the form of Levaquin and Flagyl, continue symptomatic treatment and pain management, continue IV fluids. Continue local wound care. 3. History of chronic epigastric and right upper quadrant pain radiating to right posterior shoulder associated with diarrhea. Ultrasound of liver shows fatty infiltrate. Patient will follow-up in outpatient setting for possible HIDA scan to rule out biliary dyskinesia. 3. History of GERD with esophagitis. 4. History of laparoscopic Thong fundoplication. 5. DVT prophylaxis. Continue pneumatic compression sleeves to bilateral lower extremities and encourage early ambulation. 6. GI prophylaxis. Continue IV Protonix. 7. Pneumonia prophylaxis. Continue incentive spirometry 10 times an hour while awake. Continue to monitor patient. Continue current medications. Continue symptomatic treatment and pain management. Continue to follow with medical service. Repeat lab work in a.m. The above impression and plan have been discussed and directed by Dr. Medina. Eagle BENITEZ acting as scribe for Dr. Medina.
[2016-10-29] MEDS: metroNIDAZOLE-NS PMX 500 MG in SALINE 1 100ML.BAG IVPB SCH ×3 (05:24→18:19)
[2016-10-29] MEDS: METOCLOPRAMIDE 5 MG/ML 2 ML VIAL IVP SCH ×3 (05:24→18:20)
[2016-10-29] MEDS: SODIUM CHLORIDE 0.9% 1,000 ML IV SCH ×2 (05:25→16:31)
[2016-10-29 07:58] LABS: Anion Gap 13 mmol/L; Blood Urea Nitrogen 3 mg/dL (7-17); Calcium 8.1 mg/dL (8.4-10.2); Carbon Dioxide 23 mmol/L (22-30); Chloride 103 mmol/L (98-107); Glucose 74 mg/dL (74-99); Non-African American GFR(MDRD) >60 (>60 ml/min/1.73 sqM); Potassium 3.6 mmol/L (3.5-5.1); Sodium 139 mmol/L (137-145)
[2016-10-29 08:03] LABS: Basophils % (A) 0 %; CH 32.7; CHCM 33.3; Eosinophils # (A) 0.2 k/uL (0-0.7); Eosinophils % (A) 3 %; HCT 33.3 % (34.0-46.0); HGB 11.3 gm/dL (11.4-16.0); Luc # (Auto) 0.17; Luc % (Auto) 2; Lymphocytes # (A) 1.7 k/uL (1.0-4.8); Lymphocytes % (A) 18 %; MCH 33.6 pg (25.0-35.0); MCHC 34.1 g/dL (31.0-37.0); MCV 98.7 fL (80.0-100.0); Mean Platelet Volume 8.1; Monocytes # (A) 0.7 k/uL (0-1.0); Monocytes % (A) 7 %; Neutrophils # (A) 6.8 k/uL (1.3-7.7); Neutrophils % (A) 71 %; RBC 3.37 m/uL (3.80-5.40); RDW 13.5 % (11.5-15.5); WBC 9.6 k/uL (3.8-10.6); WBC (Perox) 10.25
[2016-10-29] MEDS: HEPARIN SODIUM,PORCINE 5,000 UNIT/ML 1 ML VIAL SQ SCH ×2 (08:13→22:31)
[2016-10-29] MEDS: PANTOPRAZOLE 40 MG/10 ML VIAL IVP SCH (09:00)
--- NOTE | 2016-10-29 12:27 | P.PN ---
Progress Note - Text The patient feels better. She has some mild incisional pain. She has minimal bloating. On exam her vital signs are stable. Her abdomen soft. Her incisions clean dry intact. There is some stool in the colostomy. Resolving postoperative ileus. Patient is doing fairly well. We will advance her diet.
[2016-10-29] MEDS ORDERED: cloNIDine HCL 0.1 MG TAB PO PRN (15:33)
[2016-10-29] MEDS ORDERED: hydrALAZINE HCL 20 MG/ML 1 ML VIAL IVP PRN (15:33)
[2016-10-29] MEDS: LEVOFLOXACIN 500MG-D5W PMX 500 MG in DEXTROSE/WATER 1 100ML.BAG IVPB SCH (16:31)
--- NOTE | 2016-10-29 17:13 | PN ---
DATE OF SERVICE: 10/29/2016 I am covering for Dr. Nair. HISTORY OF PRESENT ILLNESS: This is a 45-year-old woman who was admitted after sigmoid diverticulosis perforation peritonitis and exploratory laparotomy with a Efe procedure, being closely monitored at this time. No chest pain. No palpitation. On exam, alert and oriented x3. Pulse 68, blood pressure 150/89, respirations 14, temperature 98 degrees, pulse ox 99% on room air. HEENT: Conjunctivae normal. NECK: No jugular venous distension. CARDIOVASCULAR: S1 and S2 muffled. RESPIRATORY: Breath sounds diminished in the bases. A few rhonchi. No crackles. ABDOMEN: Soft. Mild diffuse distension. LEGS: No edema. No swelling. NERVOU SYTEM: Nonfocal. LABS: WBC 9.2, hemoglobin was 11.3. ASSESSMENT: 1. Acute abdominal pain with acute sigmoid diverticulitis with perforation peritonitis, status post exploratory laparotomy and Efe procedure as well as colostomy. 2. Postoperative ileus as expected, improved. 3. History of chronic epigastric and right upper quadrant abdominal pain. 4. History of gastroesophageal reflux disease esophagitis. 5. History of laparoscopic Thong fundoplication. 6. History of deep venous thrombosis and gastrointestinal prophylaxis. 7. Increased WBC present on admission. 8. Increased potassium. 9. Increased total bilirubin. 10. Increased AST. 11. Hypoalbuminemia with mild to moderate protein-calorie malnutrition. 12. Hematuria, present on admission. 13. Hyperlipidemia. 14. Remote history of nicotine dependence. 15. FULL CODE. RECOMMENDATIONS AND DISCUSSION: In this 45-year-old woman who presented with multiple complex medical issues, we will monitor the patient closely. Continue the current medications. Continue symptomatic treatment. Otherwise, continue with broad-spectrum antibiotics, incentive spirometry. Closely follow with Dr. Medina. Further recommendations to follow.
[2016-10-30] MEDS: metroNIDAZOLE-NS PMX 500 MG in SALINE 1 100ML.BAG IVPB SCH ×3 (00:12→11:25)
[2016-10-30] MEDS: METOCLOPRAMIDE 5 MG/ML 2 ML VIAL IVP SCH ×3 (00:12→11:25)
[2016-10-30 00:25] VITALS: RESP 16
[2016-10-30] MEDS: SODIUM CHLORIDE 0.9% 1,000 ML IV SCH (05:43)
[2016-10-30] MEDS: PANTOPRAZOLE 40 MG/10 ML VIAL IVP SCH (08:18)
[2016-10-30] MEDS: HEPARIN SODIUM,PORCINE 5,000 UNIT/ML 1 ML VIAL SQ SCH (09:00)
[2016-10-30 09:02] VITALS: BP 146/89; PULSE 72; TEMP 98.2
--- NOTE | 2016-10-30 10:35 | P.DS ---
Providers Date of admission: 10/19/16 13:46 Expected date of discharge: 10/30/16 Attending physician: Juan Nair Consults: 10/20/16 07:42 Consult Physician Stat Consulting Provider: Wero Medina Consult Reason/Comments: diverticulitis Do you want consulting provider notified?: Yes Primary care physician: Juan Nair Hospital Course: Is a 45-year-old female who was admitted to the hospital with diverticular abscess. On the day of her presumed discharge the patient patient developed an acute perforation of her diverticulitis. She was taken the OR by Dr. Chu and underwent Efe procedure. Please see hospital chart for details. Procedures: Efe procedure Patient Condition at Discharge: Good Plan - Discharge Summary New Discharge Prescriptions: Levofloxacin [Levaquin] 500 mg PO DAILY #10 tab metroNIDAZOLE [Flagyl] 500 mg PO TID #20 tab Discharge Medication List Levofloxacin [Levaquin] 500 mg PO DAILY #10 tab 10/22/16 [Rx] metroNIDAZOLE [Flagyl] 500 mg PO TID #20 tab 10/22/16 [Rx] Follow up Appointment(s)/Referral(s): Juan Nair DO [Primary Care Provider] - 1 Week (Office closed, please call on Monday to make follow up appt. ) [facility] Nurse, [NON-STAFF] - 1 Week Wero Medina MD [STAFF PHYSICIAN] - 1 Week (Office closed, please call to make follow up appt on Monday) Activity/Diet/Wound Care/Special Instructions: Low residue diet for 1 week, then hi fiber diet. Discharge Disposition: HOME SELF-CARE
--- NOTE | 2016-10-30 16:43 | PN ---
DATE OF SERVICE: 10/30/2016 I am covering for Dr. Nair. HISTORY OF PRESENT ILLNESS: This 45-year-old woman was admitted with acute abdominal pain and sigmoid diverticular perforation and surgery. The patient improved significantly. Dr. Medina is planning the patient to be discharged. No chest pain, no palpitation, no fever, no shortness of breath. On exam, alert and oriented x3. The pulse is 72, blood pressure 146/89, respirations 16, temperature 98.2, pulse ox 94% on room air. HEENT: Conjunctivae normal. NECK: No jugular venous distension. CARDIOVASCULAR SYSTEM: S1, S2, muffled. RESPIRATORY: Breath sounds diminished at the bases, no rhonchi, no crackles. Abdomen is soft, status post surgery. Bowel sounds present. EXTREMITIES: Legs no edema, no swelling. NERVOUS SYSTEM: No focal deficits. LABS: At this time, hemoglobin is 11.3. Other labs are normal. ASSESSMENT: 1. Acute abdominal pain with sigmoid diverticulitis with perforation and peritonitis, status post exploratory laparotomy and Rich's procedure as well as colostomy. 2. Postoperative ileus is suspected, improved. 3. History of chronic epigastric and right upper quadrant abdominal pain. 4. History of gastroesophageal reflux disease and esophagitis. 5. History of laparoscopic Thong fundoplication. 6. History of deep venous thrombosis and gastrointestinal prophylaxis. 7. History of increased WBC, present on admission. 8. Increased potassium. 9. Increased total bilirubin. 10. Increased AST. 11. Hypovolemia with mild protein calorie malnutrition, hematuria, present on admission. 12. Hyperlipidemia. 13. Remote history of nicotine dependence. 14. FULL CODE. RECOMMENDATION: In this 45-year-old woman admitted with multiple complex medical issues, will monitor the patient closely. I would recommend to continue with the current medication and symptomatic treatment, incentive spirometry. Recommend closely follow with Dr. Nair after discharge in the [facility]. Further recommendations per Dr. Medina. The family is also concerned about the minimal hypertension the patient was having. I recommended patient to do an outpatient followup with Dr. Nair and continue to monitor. Further recommendations to follow.
== END 2016-10-30 14:00 | disposition home health service (06) | DRG 330 ==
LOC: EC 09:33 → 6PED 13:46 → 3SUR 10-22 23:29
PROVIDERS: ADMIT Family Medicine; ATTEND Family Medicine
PROC: 0D1M0Z4 Bypass Descending Colon to Cutaneous, Open Approach (ICD-10-PCS; 2016-10-22)
PROC: 0DTN0ZZ Resection of Sigmoid Colon, Open Approach (ICD-10-PCS; principal; 2016-10-22 20:30)
PROC: 0D9670Z Drainage of Stomach with Drainage Device, Via Natural or Artificial Opening (ICD-10-PCS; 2016-10-26)
DX: K57.20 Diverticulitis of large intestine with perforation and abscess without bleeding (principal); E44.0 Moderate protein-calorie malnutrition; R18.8 Other ascites; K56.0 Paralytic ileus; K76.0 Fatty (change of) liver, not elsewhere classified; K91.89 Other postprocedural complications and disorders of digestive system; E66.9 Obesity, unspecified; K21.0 Gastro-esophageal reflux disease with esophagitis; R51 Headache; K52.9 Noninfective gastroenteritis and colitis, unspecified; E86.1 Hypovolemia; K44.9 Diaphragmatic hernia without obstruction or gangrene; R31.9 Hematuria, unspecified; E78.5 Hyperlipidemia, unspecified; G89.29 Other chronic pain; M25.511 Pain in right shoulder; E73.9 Lactose intolerance, unspecified; R10.13 Epigastric pain; R10.11 Right upper quadrant pain; R23.2 Flushing; R74.8 Abnormal levels of other serum enzymes; D72.829 Elevated white blood cell count, unspecified; R11.0 Nausea; F17.200 Nicotine dependence, unspecified, uncomplicated; Z88.0 Allergy status to penicillin; Z88.2 Allergy status to sulfonamides; Z87.19 Personal history of other diseases of the digestive system; Z80.51 Family history of malignant neoplasm of kidney; Z86.718 Personal history of other venous thrombosis and embolism; Z71.3 Dietary counseling and surveillance; Z83.79 Family history of other diseases of the digestive system; Z68.30 Body mass index [BMI] 30.0-30.9, adult; Z87.448 Personal history of other diseases of urinary system; Z93.3 Colostomy status
CPT/HCPCS: 36415; 71010; 74000; 74020; 74176; 74177; 76830; 80048; 80053; 81001; 81025; 82150; 83690; 83735; 84100; 85025; 87070; 87075; 87086; 87205; 88307; 93976; 94760; 96361; 96365; 96375; 96376; 99285

== ENCOUNTER → 2017-01-24 | Outpatient (CLI) | payer BC ==
--- NOTE | 2017-01-24 11:28 | MM ---
Reason for exam: screening (asymptomatic). Last mammogram was performed 2 years and 6 months ago. History: Took hormonal contraceptives for 8 years. Physical Findings: A clinical breast exam by your physician is recommended on an annual basis and results should be correlated with mammographic findings. MG Screening Mammo w CAD Bilateral CC and MLO view(s) were taken. Prior study comparison: July 23, 2014, bilateral MG screening mammo w CAD. February 12, 2013, bilateral digital screening mammo w/CAD. The breast tissue is heterogeneously dense. This may lower the sensitivity of mammography. No significant changes when compared with prior studies. ASSESSMENT: Benign, BI-RAD 2 RECOMMENDATION: Routine screening mammogram of both breasts in 1 year.
== END | disposition home or self-care (01) ==
LOC: RADMAMWWP 07:48
PROVIDERS: ATTEND Obstetrics & Gynecology
DX: Z12.31 Encounter for screening mammogram for malignant neoplasm of breast (principal)

== ENCOUNTER → 2017-12-20 | Outpatient (CLI) | payer BC ==
[2017-12-20 10:46] LABS: Anion Gap 11 mmol/L; Blood Urea Nitrogen 14 mg/dL (7-17); Carbon Dioxide 30 mmol/L (22-30); Chloride 98 mmol/L (98-107); Potassium 4.3 mmol/L (3.5-5.1); Sodium 139 mmol/L (137-145)
== END | disposition home or self-care (01) ==
LOC: LABWHC1 09:38
PROVIDERS: ATTEND Internal Medicine Interventional Cardiology
DX: I10 Essential (primary) hypertension (principal)
CPT/HCPCS: 36415; 80051; 82565; 84520

== ENCOUNTER → 2018-02-13 | Outpatient (CLI) | payer BC ==
--- NOTE | 2018-03-06 12:33 | CONS ---
CONSULTATION DATE OF SERVICE 02/13/2018 This is a 47-year-old female patient, referred to me for evaluation of sleep apnea. She apparently has loud snoring, excessive fatigue and sleepiness and she wakes up with dry mouth. She goes to bed between 9-10 p.m., wakes up 4-5 a.m. in the morning. She was on 4-6 hours of sleep. She sleeps on her side. Occasionally on her back. Weight has been up over the past 1 year. Sleep is fragmented and she wakes up at least 4 times in the middle of the night. Exact reason for the arousal is not clear. The current [place] score is at 2. No sleep paralysis or cataplexy. No history of any motor vehicle accident because of feeling sleepy or drowsy. Comorbidities include hypertension. PAST MEDICAL HISTORY: Hypertension. PAST SURGICAL HISTORY: Includes diverticulitis requiring a colectomy with stoma ad diverting colostomy with subsequent reversal, Thong fundoplication. DRUG ALLERGIES: Not known. OUTPATIENT MEDICATION LIST: Includes losartan 100, potassium 10, and hydrochlorothiazide 25 one tablet a day. SOCIAL HISTORY: Positive smoking, no history of alcohol, no history of IV drugs. She drinks alcohol socially. FAMILY HISTORY: Positive for obstructive sleep apnea in a grandmother and aunt. REVIEW OF SYSTEMS: A 12-point review of system was done. Positive findings are mentioned above in history of present illness. No history of any insomnia, no nocturia, no restlessness of lower extremities. No sleepwalking or sleep talking. No sweating, no palpitation, no heartburn, no anxiety or panic attacks. No depression, no sexual dysfunction. PHYSICAL EXAMINATION: BP is 108/76, pulse 91, respirations 16, temp 98.4 saturation 97% on room air. Weight is 167, height is 62 inches. Neck size is 14, [place] score is 2. GENERAL APPEARANCE: Calm, comfortable. Head is atraumatic, normocephalic. NECK: Supple. There is no JVD or neck mass. LUNGS: Clear to auscultation. HEART: Sounds are regular rate and rhythm, normal S1, S2. No S3, S4. No murmurs. ABDOMEN: Soft, nontender. No organomegaly. EXTREMITIES: No edema. No cyanosis or clubbing. IMPRESSION: 1. Sleep apnea suspected, under investigation. 2. Snoring. 3. Sleep fragmentation. 4. Hypertension. PLAN: 1. Weight loss. 2. Implement good sleep hygiene measures. 3. Proceed with a home sleep study to evaluate for obstructive sleep apnea. MMODL / IJN: [id number] /
== END | disposition home or self-care (01) ==
LOC: SLEEP 14:06
PROVIDERS: ATTEND Internal Medicine Critical Care Medicine
DX: G47.9 Sleep disorder, unspecified (principal); R06.83 Snoring; I10 Essential (primary) hypertension; F17.200 Nicotine dependence, unspecified, uncomplicated; Z79.899 Other long term (current) drug therapy
CPT/HCPCS: 99211

== ENCOUNTER → 2018-05-28 | Outpatient (CLI) | payer BC ==
--- NOTE | 2018-05-28 13:59 | MM ---
Reason for exam: screening (asymptomatic). Last mammogram was performed 1 year and 4 months ago. History: Took hormonal contraceptives for 8 years. Physical Findings: A clinical breast exam by your physician is recommended on an annual basis and results should be correlated with mammographic findings. MG 3D Screening Mammo W/Cad Bilateral CC and MLO view(s) were taken. Prior study comparison: January 24, 2017, bilateral MG screening mammo w CAD. July 23, 2014, bilateral MG screening mammo w CAD. There are scattered fibroglandular densities. There is no discrete abnormality. No significant changes when compared with prior studies. ASSESSMENT: Negative, BI-RAD 1 RECOMMENDATION: Routine screening mammogram of both breasts in 1 year.
== END | disposition home or self-care (01) ==
LOC: RADMAMWWP 07:15
PROVIDERS: ATTEND Obstetrics & Gynecology
DX: Z12.31 Encounter for screening mammogram for malignant neoplasm of breast (principal)
CPT/HCPCS: 77063; 77067

== ENCOUNTER → 2018-10-24 | Outpatient (CLI) | payer BC ==
--- NOTE | 2018-10-24 14:23 | XR ---
EXAMINATION TYPE: XR ankle complete RT DATE OF EXAM: 10/24/2018 COMPARISON: NONE HISTORY: Pain FINDINGS: Three views of the ankle demonstrate the ankle mortise to be intact and symmetric. The joint spaces are preserved. The osseous structures are intact. Extensive soft tissue edema laterally. IMPRESSION: 1. No definite acute fracture or dislocation, if symptoms persist follow-up study in 7 to 10 days wou ld be suggested.
== END | disposition home or self-care (01) ==
LOC: RADXRMAIN 14:07
PROVIDERS: ATTEND Family Medicine
DX: M25.571 Pain in right ankle and joints of right foot (principal)

== ENCOUNTER 2019-01-20 13:35 | Emergency (ER) | payer BC ==
[2019-01-20 13:54] VITALS: BP 120/77; PULSE 101; RESP 18; TEMP 98.5
[2019-01-20] MEDS ORDERED: methylPREDNISolone SOD SUCCI 125 MG/2 ML VIAL IM ONE (14:22)
[2019-01-20] MEDS ORDERED: cefTRIAXone 1,000 MG VIAL (IM USE) IM STA (14:22)
[2019-01-20] MEDS ORDERED: FAMOTIDINE 20 MG TAB PO STA (14:22)
[2019-01-20] MEDS ORDERED: diphenhydrAMINE 25 MG CAP PO STA (14:22)
--- NOTE | 2019-01-20 14:44 | ED ---
Skin/Abscess/FB HPI - General Chief complaint: Skin/Abscess/Foreign Body Stated complaint: bug bite lt thigh Time Seen by Provider: 01/20/19 14:05 Source: patient, RN notes reviewed, old records reviewed Mode of arrival: ambulatory Limitations: no limitations - History of Present Illness Initial comments: Patient is a 40-year-old female who presents emergency department today after sustaining a bug bite on the left lateral thigh yesterday evening. Patient reports that today she notes increased redness, swelling extending from the medial thigh down the leg over the knee joint and to the lower calf. Patient reports that it seems warm and tender to touch. Patient states that she has taken some Benadryl with no relief of her symptoms. Patient denies any posterior calf pain. She denies any fevers or chills. She denies any history of resistant skin infections. - Related Data Previous Rx's Medication Instructions Recorded Levofloxacin [Levaquin] 500 mg PO DAILY #14 tab 10/30/16 metroNIDAZOLE [Flagyl] 250 mg PO TID #21 tab 10/30/16 Doxycycline [Vibramycin] 100 mg PO BID #14 cap 01/20/19 diphenhydrAMINE [Benadryl] 25 mg PO TID PRN #20 capsule 01/20/19 predniSONE 50 mg PO DAILY #5 tablet 01/20/19 Allergies Allergy/AdvReac Type Severity Reaction Status Date / Time Penicillins Allergy Swelling Verified 01/20/19 13:54 Sulfa (Sulfonamide Allergy Swelling Verified 01/20/19 13:54 Antibiotics) Review of Systems ROS Statement: Those systems with pertinent positive or pertinent negative responses have been documented in the HPI. ROS Other: All systems not noted in ROS Statement are negative. Past Medical History Past Medical History: GERD/Reflux, Hyperlipidemia Additional Past Medical History / Comment(s): increase in urination and bowel movements-sated for pat year has had diarrhea on daily basis between 2-6 per day. "lactose intolerant", hiatal hernia(had sx), "i was told i had a fatty liver per the us done" History of Any Multi-Drug Resistant Organisms: None Reported Past Surgical History: Tonsillectomy Additional Past Surgical History / Comment(s): EGD, demi fundoplication Past Anesthesia/Blood Transfusion Reactions: Family History of Problems w/ Anesthesia Additional Past Anesthesia/Blood Transfusion Reaction / Comment(s): FATHER TAKES LONGER TO WAKE UP, TROUBLE WITH INTUBATION" Past Psychological History: No Psychological Hx Reported Smoking Status: Current every day smoker Past Alcohol Use History: Occasional Past Drug Use History: None Reported - Past Family History Father Family Medical History: Cancer Sister(s) Family Medical History: Cancer Additional Family Medical History / Comment(s): kidney cancer, and 2nd sister has colitis. General Exam Limitations: no limitations General appearance: alert, in no apparent distress Head exam: Present: atraumatic, normocephalic, normal inspection Eye exam: Present: normal appearance, PERRL, EOMI. Absent: scleral icterus, conjunctival injection, periorbital swelling ENT exam: Present: normal exam, mucous membranes moist Neck exam: Present: normal inspection. Absent: tenderness, meningismus, lymphadenopathy Respiratory exam: Present: normal lung sounds bilaterally. Absent: respiratory distress, wheezes, rales, rhonchi, stridor Cardiovascular Exam: Present: regular rate, normal rhythm, normal heart sounds. Absent: systolic murmur, diastolic murmur, rubs, gallop, clicks GI/Abdominal exam: Present: soft, normal bowel sounds. Absent: distended, tenderness, guarding, rebound, rigid Extremities exam: Present: normal inspection, full ROM, normal capillary refill. Absent: tenderness, pedal edema, joint swelling, calf tenderness Left Upper Leg exam: Absent: normal inspection (Patient has evidence of likely insect bite with surrounding induration and erythema and warmth over the lateral left thigh, lateral aspect of the knee into the upper calf.) Knee exam: Present: normal inspection, full ROM Lower Leg exam: Present: normal inspection, full ROM Ankle exam: Present: normal inspection, full ROM Foot/Toe exam: Present: normal inspection, full ROM Back exam: Present: normal inspection, full ROM Neurological exam: Present: alert, oriented X3, CN II-XII intact Psychiatric exam: Present: normal affect, normal mood Skin exam: Present: warm, dry, intact, normal color. Absent: rash Course Vital Signs 01/20/19 13:52 Temperature 98.5 F Pulse Rate 101 H Respiratory 18 Rate Blood Pressure 120/77 O2 Sat by Pulse 98 Oximetry Medical Decision Making - Medical Decision Making Patient is a 40-year-old female presents returns a left leg leg pain and redness and swelling after insect bite. Concern for possibly of ALLERGIC reaction or versus cellulitis. She has not no posterior calf tenderness. No concern for DVT. There is an area of where the insect bite likely occurred. I discussed this and give the Patient a steroid shot, and antibiotic injection of Rocephin. Discussed covering the Patient for ALLERGIC reaction versus cellulitis with antibiotics and steroids and Benadryl. Patient advised to keep the leg up and elevated. Discussed the area of redness or swelling worsens or she may need to return for reevaluation. All questions were answered return parameters were discussed. Disposition Clinical Impression: Insect bite of left leg, Left leg cellulitis, Allergic reaction to insect bite Disposition: HOME SELF-CARE Condition: Good Additional Instructions: Patient has felt with her primary care doctor within the next 1-2 days. Rest, and ice the leg. Keep it up and elevated. Take antibiotics and steroids as prescribed. Monitor the area of redness and swelling if it worsens within the next 48 hours please return for recheck. Prescriptions: diphenhydrAMINE [Benadryl] 25 mg PO TID PRN #20 capsule PRN Reason: Itching predniSONE 50 mg PO DAILY #5 tablet Doxycycline [Vibramycin] 100 mg PO BID #14 cap Is patient prescribed a controlled substance at d/c from ED?: No Referrals: Juan Nair DO [Primary Care Provider] - 1-2 days Time of Disposition: 14:42
== END 2019-01-20 15:00 | disposition home or self-care (01) ==
LOC: EC 13:35
DX: S70.362A Insect bite (nonvenomous), left thigh, initial encounter (principal); L03.116 Cellulitis of left lower limb; F17.200 Nicotine dependence, unspecified, uncomplicated; Z88.2 Allergy status to sulfonamides; Z88.0 Allergy status to penicillin; W57.XXXA Bitten or stung by nonvenomous insect and other nonvenomous arthropods, initial encounter
CPT/HCPCS: 99283; 96372 ×2; J2930; J0696

== ENCOUNTER → 2019-08-22 | Outpatient (CLI) | payer BC ==
--- NOTE | 2019-08-23 10:46 | MM ---
Reason for exam: screening (asymptomatic). Last mammogram was performed 1 year and 3 months ago. History: Took hormonal contraceptives for 8 years. Physical Findings: A clinical breast exam by your physician is recommended on an annual basis and results should be correlated with mammographic findings. MG 3D Screening Mammo W/Cad Bilateral CC and MLO view(s) were taken. Prior study comparison: May 28, 2018, bilateral MG 3d screening mammo w/cad. January 24, 2017, bilateral MG screening mammo w CAD. The breast tissue is heterogeneously dense. This may lower the sensitivity of mammography. There is no discrete abnormality. ASSESSMENT: Negative, BI-RAD 1 RECOMMENDATION: Routine screening mammogram of both breasts in 1 year.
== END | disposition home or self-care (01) ==
LOC: RADMAMWWP 07:36
PROVIDERS: ATTEND Obstetrics & Gynecology
DX: Z12.31 Encounter for screening mammogram for malignant neoplasm of breast (principal)
CPT/HCPCS: 77063; 77067

== ENCOUNTER → 2019-08-27 | Outpatient (CLI) | payer BC ==
--- NOTE | 2019-08-27 15:51 | P.PN ---
Progress Note - Text Progress Note Date: 08/27/19 48-year-old female patient was sent back was coming in for evaluation. At that time there was concern for sleep apnea the patient was having loud snoring and excessive sleepiness. She was going to bed between 9 and 10 PM waking up 4:56 AM in the morning and she still getting the same schedule. In the antrum, she has lost weight and she is currently down to 153 pounds. Her blood pressure is still slightly elevated and she is requiring a combination of blood pressure medications under the care of cardiology. She is still snoring and there is still concern for sleep apnea and she is coming in to be reevaluated. Note that back then I recommended a home sleep study. My overall suspicion is low for sleep apnea. [place] score is 3. Her comorbidities include only hypertension. She has also had previous colectomy and diverting colostomy with subsequent reversal as a complication of diverticulitis. The patient denies having to wake up gasping for air or choking sensation. No unusual behavior at night. No sleepwalking. No sleepwalking or talking and no restlessness in the lower extremities. Review of system is essentially negative other than weight loss. No cardiac events. No cardiac arrhythmias. No angina. No palpitations. No congestion heart failure. No stroke. The patient chills quite a bit and she's not much excited about CPAP therapy BP is 119/83 with a pulse of 82 and respiration of 16 with a temperature of 98.2. Her height is 53 and the weight is down to 153. Her neck size is 13-1/2 inches. The patient appeared well nourished and normally developed. Vital signs as documented. Head exam is unremarkable. No scleral icterus or corneal arcus noted . Neck is without jugular venous distension, thyromegaly, or carotid bruits. Carotid upstrokes are brisk bilaterally. Lungs are clear to auscultation and percussion. Cardiac exam reveals the PMI to be normally sized and situated. Rhythm is regular. First and second heart sounds normal. No murmurs, rubs or gallops. Abdominal exam reveals normal bowel sounds, no masses, no organomegaly and no aortic enlargement. Extremities are nonedematous and both femoral and pedal pulses are normal.Examination of the skin revealed no evidence of significant rashes, suspicious appearing nevi or other concerning lesions. Neurologically awake and alert and there is no focal neurological deficit Impression 1 loud snoring 2 limited sleepiness with an [place] score of 3 3 adequate sleep hygiene with at least 6 hours of sleeping during weekdays and 7 hours on weekends. No other major comorbidities Plan This patient has already lost significant amount of weight. My overall suspicion for obstructive sleep apnea is low. I'm going to do a home sleep study to evaluate for any sleep breathing disorder and will decide on the treatment accordingly. We are not interested treating mild sleep apnea in her condition. Continue following good sleep hygiene measures. Avoid alcoholic beverages at nighttime. Sleep on the side with the head of the bed elevated at around 20-30. We'll discuss the results over the phone and will make further recommendations once the home sleep study is available.
== END | disposition home or self-care (01) ==
LOC: SLEEP 15:21
PROVIDERS: ATTEND Internal Medicine Critical Care Medicine
DX: R06.83 Snoring (principal)
CPT/HCPCS: 99211

== ENCOUNTER → 2020-10-12 | Outpatient (CLI) | payer BC ==
--- NOTE | 2020-10-14 09:24 | MM ---
Reason for exam: screening (asymptomatic). Last mammogram was performed 1 year and 2 months ago. History: Took hormonal contraceptives for 8 years. Physical Findings: A clinical breast exam by your physician is recommended on an annual basis and results should be correlated with mammographic findings. MG 3D Screening Mammo W/Cad Bilateral CC and MLO view(s) were taken. Prior study comparison: August 22, 2019, bilateral MG 3d screening mammo w/cad. May 28, 2018, bilateral MG 3d screening mammo w/cad. The breast tissue is heterogeneously dense. This may lower the sensitivity of mammography. No significant changes when compared with prior studies. ASSESSMENT: Negative, BI-RAD 1 RECOMMENDATION: Routine screening mammogram of both breasts in 1 year.
== END ==
LOC: RADMAMWWP 07:32
PROVIDERS: ATTEND Obstetrics & Gynecology
DX: Z12.31 Encounter for screening mammogram for malignant neoplasm of breast (principal)
CPT/HCPCS: 77063; 77067

== ENCOUNTER 2021-05-24 07:56 | Emergency (ER) | payer BC ==
[2021-05-24 08:01] VITALS: RESP 18; TEMP 99.4
[2021-05-24 08:28] LABS: Appearance,Urine Cloudy (Clear); Bacteria,Urine Few /hpf; Bilirubin,Urine Negative (Negative); Blood,Urine Negative (Negative); Color,Urine Yellow; Glucose,Urine (UA) Negative (Negative); Ketones,Urine Trace (Negative); Leukocyte Esterase,Urine Negative (Negative); Mucus,Urine Few /hpf; Nitrite,Urine Negative (Negative); Protein,Urine Negative (Negative); Specific Gravity,Urine 1.023 (1.001-1.035); Squamous Epithelial Cell,Urine 8 /hpf (0-4); Urobilinogen,Urine <2.0 mg/dL (<2.0); WBC,Urine 2 /hpf (0-5)
[2021-05-24] MEDS ORDERED: ORPHENADRINE 30 MG/ML 2 ML VIAL IM STA (11:16)
[2021-05-24] MEDS ORDERED: KETOROLAC 15 MG/ML 1 ML VIAL IM STA (11:16)
--- NOTE | 2021-05-24 11:19 | ED ---
General Adult HPI - General Chief complaint: Back Pain/Injury Stated complaint: Lower back pain Time Seen by Provider: 05/24/21 10:51 Source: patient, RN notes reviewed Mode of arrival: ambulatory Limitations: no limitations - History of Present Illness Initial comments: 50-year-old female with a past medical history of hyperlipidemia, hypertension presents to the emergency room for back pain. Patient reports that she has right-sided back pain as starting yesterday. Patient does not recall injuring the area. States that throughout the evening she started to have pain radiating to the right thigh as well as some tingling in the right thigh. States it hurts to walk. Patient denies bladder or bowel changes, saddle anesthesia, fevers, or weakness of the legs.Patient has no other complaints at this time including shortness of breath, chest pain, abdominal pain, nausea or vomiting, headache, or visual changes. - Related Data Previous Rx's Medication Instructions Recorded Levofloxacin [Levaquin] 500 mg PO DAILY #14 tab 10/30/16 metroNIDAZOLE [Flagyl] 250 mg PO TID #21 tab 10/30/16 Doxycycline [Vibramycin] 100 mg PO BID #14 cap 01/20/19 diphenhydrAMINE [Benadryl] 25 mg PO TID PRN #20 capsule 01/20/19 predniSONE 50 mg PO DAILY #5 tablet 01/20/19 Cyclobenzaprine [Flexeril] 10 mg PO TID #14 tab 05/24/21 predniSONE 50 mg PO DAILY #5 tablet 05/24/21 Allergies Allergy/AdvReac Type Severity Reaction Status Date / Time Penicillins Allergy Swelling Verified 05/24/21 08:01 Sulfa (Sulfonamide Allergy Swelling Verified 05/24/21 08:01 Antibiotics) Review of Systems ROS Statement: Those systems with pertinent positive or pertinent negative responses have been documented in the HPI. ROS Other: All systems not noted in ROS Statement are negative. Past Medical History Past Medical History: GERD/Reflux, Hyperlipidemia, Hypertension Additional Past Medical History / Comment(s): increase in urination and bowel movements-sated for pat year has had diarrhea on daily basis between 2-6 per day. "lactose intolerant", hiatal hernia(had sx), "i was told i had a fatty liver per the us done" History of Any Multi-Drug Resistant Organisms: None Reported Past Surgical History: Tonsillectomy Additional Past Surgical History / Comment(s): EGD, demi fundoplication Past Anesthesia/Blood Transfusion Reactions: Family History of Problems w/ Anesthesia Additional Past Anesthesia/Blood Transfusion Reaction / Comment(s): FATHER TAKES LONGER TO WAKE UP, TROUBLE WITH INTUBATION" Past Psychological History: No Psychological Hx Reported Smoking Status: Current every day smoker Past Alcohol Use History: Occasional Past Drug Use History: None Reported - Past Family History Father Family Medical History: Cancer Sister(s) Family Medical History: Cancer Additional Family Medical History / Comment(s): kidney cancer, and 2nd sister has colitis. General Exam Limitations: no limitations General appearance: alert, in no apparent distress Head exam: Present: atraumatic Eye exam: Present: normal appearance, PERRL, EOMI ENT exam: Present: normal exam, mucous membranes moist Neck exam: Present: normal inspection, full ROM. Absent: tenderness Respiratory exam: Present: normal lung sounds bilaterally. Absent: respiratory distress, wheezes Cardiovascular Exam: Present: regular rate, normal rhythm, normal heart sounds GI/Abdominal exam: Present: soft, normal bowel sounds. Absent: distended, tenderness Extremities exam: Present: full ROM (Full range of motion, full strength right lower extremity), normal capillary refill (Capillary refill less than 2 seconds right lower extremity.), other (Antalgic gait with walking) Back exam: Present: paraspinal tenderness (Right-sided lumbar paraspinal tenderness). Absent: CVA tenderness (R), CVA tenderness (L), vertebral tenderness Course Vital Signs 05/24/21 07:57 Temperature 99.4 F Pulse Rate 99 Respiratory 18 Rate Blood Pressure 130/84 O2 Sat by Pulse 98 Oximetry Medical Decision Making - Medical Decision Making Vitals are stable and patient is well-appearing. Patient has right-sided low back pain that radiates down the right leg. Pain with walking, does have antalgic gait. Patient was given Toradol and Norflex and did have improvement in symptoms. I suspect the pain is likely radicular in nature given she is having right low back pain that radiates on the right leg. We will start her on steroids and a muscle relaxer. Send her home with some Tylenol 3. She will follow up with primary care. She will return here for any worsening symptoms. - Lab Data Lab Results 05/24/21 Range/Units 08:00 Urine Color Yellow Urine Appearance Cloudy H (Clear) Urine pH 6.0 (5.0-8.0) Ur Specific [place] 1.023 (1.001-1.035) Urine Protein Negative (Negative) Urine Glucose (UA) Negative (Negative) Urine Ketones Trace H (Negative) Urine Blood Negative (Negative) Urine Nitrite Negative (Negative) Urine Bilirubin Negative (Negative) Urine Urobilinogen <2.0 (<2.0) mg/dL Ur Leukocyte Esterase Negative (Negative) Urine WBC 2 (0-5) /hpf Ur Squamous Epith Cells 8 H (0-4) /hpf Urine Bacteria Few H (None) /hpf Urine Mucus Few H (None) /hpf Disposition Clinical Impression: Mechanical back pain Disposition: TRANSFER TO PSYCH HOSP/UNIT Condition: Good Instructions (If sedation given, give patient instructions): Acute Low Back Pain (ED) Additional Instructions: Take medications as directed. Follow-up with primary care and orthopedics. If symptoms persist you may need MRI. Return to the emergency room for any worsening symptoms such as fevers, bladder bowel changes, or weakness of the legs Prescriptions: Cyclobenzaprine [Flexeril] 10 mg PO TID #14 tab predniSONE 50 mg PO DAILY #5 tablet Is patient prescribed a controlled substance at d/c from ED?: No Referrals: Juan Nair DO [Primary Care Provider] - 1-2 days Lenka Sauceda DO [Doctor of Osteopathic Medicine] - 1-2 days Time of Disposition: 12:18
--- NOTE | 2021-05-24 11:50 | XR ---
Lumbar spine HISTORY: Pain 3 view cervical spine There is multilevel spondylosis. Sclerosis present in the posterior elements. There is a slight spina l curvature. Loss of disc height at L2-3, L3-4. Lumbar vertebral bodies show preserved height. IMPRESSION: Slight spinal curvature. Degenerative disc disease and facet.
[2021-05-24 12:47] VITALS: BP 122/75; PULSE 80
== END 2021-05-24 12:46 ==
LOC: EC 07:56
DX: M54.6 Pain in thoracic spine (principal); I10 Essential (primary) hypertension; Z20.822 Contact with and (suspected) exposure to COVID-19; Z88.0 Allergy status to penicillin; Z88.2 Allergy status to sulfonamides
CPT/HCPCS: 81001; 72100; 99285; 96372 ×2; J2360; J1885

== ENCOUNTER → 2022-02-03 | Outpatient (CLI) | payer BC ==
--- NOTE | 2022-02-04 07:47 | MM ---
Reason for Exam: Screening (asymptomatic). Last mammogram was performed 1 year(s) and 4 month(s) ago. Patient History: Menarche at age 15. Patient has no children. Patient used Hormonal Contraceptives for 8 years. Risk Values: Janis 5 year model risk: 1.0%. NCI Lifetime model risk: 8.9%. Prior Study Comparison: 05/28/2018 Bilateral Screening Mammogram, [facility]. 08/22/2019 Bilateral Screening Mammogram, [facility]. 10/12/2020 Bilateral Screening Mammogram, [facility]. Tissue Density: There are scattered fibroglandular densities. Findings: Analyzed By CAD. There is no suspicious group of microcalcifications or new suspicious mass in either breast. Overall Assessment: Negative, BI-RAD 1 Management: Screening Mammogram of both breasts in 1 year. A clinical breast exam by your physician is recommended on an annual basis and results should be correlated with mammographic findings. Electronically signed and approved by: Jim Carcamo M.D.
== END | disposition home or self-care (01) ==
LOC: RADMAMWWP 07:26
PROVIDERS: ATTEND Obstetrics & Gynecology
DX: Z12.31 Encounter for screening mammogram for malignant neoplasm of breast (principal)
CPT/HCPCS: 77063; 77067

== ENCOUNTER → 2023-03-24 | Outpatient (CLI) | payer BC ==
[2023-03-24 15:53] LABS: ALT 17 U/L (8-44); AST 23 U/L (13-35); Albumin/Globulin Ratio 1.72 Ratio (1.60-3.17); Alkaline Phosphatase 64 U/L (41-126); BUN/Creat Ratio 10.62 Ratio (12.00-20.00); Blood Urea Nitrogen 8.5 mg/dL (9.0-27.0); Calcium 10.2 mg/dL (8.7-10.3); Carbon Dioxide 28.2 mmol/L (21.6-31.8); Chloride 101 mmol/L (96-109); Chol/HDL Ratio 2.58 Ratio; Globulin 2.9 d/dL (1.6-3.3); Glucose 88 mg/dL (70-110); LDL Cholesterol,Calculated 116.4 mg/dL (0.0-131.0); Potassium 5.3 mmol/L (3.5-5.5); Sodium 141 mmol/L (135-145); Total Bilirubin 0.6 mg/dL (0.3-1.2); Total Protein 7.9 d/dL (6.2-8.2)
== END | disposition home or self-care (01) ==
LOC: LABWHC1 07:19
PROVIDERS: ATTEND Internal Medicine Interventional Cardiology
DX: E78.2 Mixed hyperlipidemia (principal)
CPT/HCPCS: 36415; 80053; 80061

== ENCOUNTER → 2023-05-25 | Outpatient (CLI) | payer BC ==
--- NOTE | 2023-05-25 11:40 | MM ---
Reason for Exam: Screening (asymptomatic). Last mammogram was performed 1 year(s) and 3 month(s) ago. Patient History: Menarche at age 15. Patient has no children. Currently using Progesterone, starting at age 50. Patient used Hormonal Contraceptives for 8 years. Risk Values: Janis 5 year model risk: 1.1%. NCI Lifetime model risk: 8.8%. Prior Study Comparison: 08/22/2019 Bilateral Screening Mammogram, [facility]. 10/12/2020 Bilateral Screening Mammogram, [facility]. 02/03/2022 Bilateral MG 3D screening mammo w/cad, [facility]. Tissue Density: The breast tissue is heterogeneously dense. This may lower the sensitivity of mammography. Findings: Analyzed By CAD. There is no suspicious group of microcalcifications or new suspicious mass. Overall Assessment: Negative, BI-RAD 1 Management: Screening Mammogram of both breasts in [address] [facility] will attempt to contact patient to return for supplemental views and ultrasound if indicated. Patient should continue monthly self-breast exams. A clinical breast exam by your physician is recommended on an annual basis. This exam should not preclude additional follow-up of suspicious palpable abnormalities. Note on Janis scores and lifetime risk: 1. A Janis score greater than 3% is considered moderate risk. If this is the case, consider specialist referral to assess eligibility for a risk reducing agent. 2. If overall lifetime risk for the development of breast cancer is 20% or higher, the patient may qualify for future screening with alternating mammogram and breast MRI. Electronically signed and approved by: Butch Castellano DO
== END | disposition home or self-care (01) ==
LOC: RADMAMWWP 07:18
PROVIDERS: ATTEND Obstetrics & Gynecology
DX: Z12.31 Encounter for screening mammogram for malignant neoplasm of breast (principal)
CPT/HCPCS: 77063; 77067

== ENCOUNTER → 2024-05-27 | Outpatient (CLI) | payer BC ==
--- NOTE | 2024-05-28 10:03 | MM ---
Reason for Exam: Screening (asymptomatic). Last screening mammogram was performed 12 month(s) ago. Patient History: Menarche at age 15. Patient has no children. Currently using Progesterone, starting at age 50. Patient used Hormonal Contraceptives for 8 years. Risk Values: Janis 5 year model risk: 1.1%. NCI Lifetime model risk: 8.6%. Prior Study Comparison: 10/12/2020 Bilateral Screening Mammogram, [facility]. 02/03/2022 Bilateral MG 3D screening mammo w/cad, [facility]. 05/25/2023 Bilateral MG 3D screening mammo w/cad, [facility]. Tissue Density: There are scattered areas of fibroglandular density. Findings: Analyzed By CAD. Unchanged bilateral areas of asymmetric density. There is no suspicious group of microcalcifications or new suspicious mass in either breast. Overall Assessment: Benign, BI-RAD 2 Management: Screening Mammogram of both breasts in 1 year. . Patient should continue monthly self-breast exams. A clinical breast exam by your physician is recommended on an annual basis. This exam should not preclude additional follow-up of suspicious palpable abnormalities. Note on Janis scores and lifetime risk: 1. A Janis score greater than 3% is considered moderate risk. If this is the case, consider specialist referral to assess eligibility for a risk reducing agent. 2. If overall lifetime risk for the development of breast cancer is 20% or higher, the patient may qualify for future screening with alternating mammogram and breast MRI. [facility], , 05/28/2024 10:00 AM. Electronically signed and approved by: Clarisa Shah M.D. Radiologist
== END | disposition home or self-care (01) ==
LOC: RADMAMWWP 07:39
PROVIDERS: ATTEND Obstetrics & Gynecology
CPT/HCPCS: 77067

== ENCOUNTER → 2024-10-04 | Outpatient (CLI) | payer BC ==
--- NOTE | 2024-10-04 07:59 | CTL ---
EXAMINATION TYPE: CT Low Dose Lung DATE OF EXAM ORDERED: 10/04/2024 COMPARISON: None. CLINICAL INDICATION: Female, 53 years old with history of Z12.2 enctr scn for malig neop, F17.[address] dep[address]; [facility], Encounter for malignant neoplasm, Nicotine dependence, Lung cancer screening, History o f Smoking/tobacco use. TECHNIQUE: Low dose computed tomography scan was performed through the chest at 1 mm thick sections a nd reconstructed images in multiple planes at 1 mm and [address] DLP: 112.[address] CTDI: 3.20 mGy Automated exposure control for dose reduction was used. CT DIAGNOSTIC QUALITY: Satisfactory FINDINGS: Nodules: A few scattered tiny bilateral nodules. No greater than 6 mm pulmonary nodules. RUL: None. RML: None. RLL: There is a 4 x 3 mm right lower lobe nodule axial image 156. KATHRINE: None. LLL: None. LUNGS: COPD: Severity: None Fibrosis: Severity: None Lymph nodes: None Other findings: None RIGHT PLEURAL SPACE: Effusion: None Calcification: None Thickening: None Pneumothorax: None LEFT PLEURAL SPACE: Effusion: None Calcification: None Thickening: None Pneumothorax: None HEART: Heart Size: Normal Coronary Calcification: None Pericardial Effusion: None OTHER FINDINGS: Upper abdomen: Surgical changes just below diaphragm are felt present near gastroesophageal junction. Bony thorax: Slight scoliotic curvature upper thoracic spine. Supraclavicular region: None Other: None IMPRESSION: No greater than [address] LUNG RAD AND CT CHEST RECOMMENDATION: Lung-Rad 2 Benign Appearance or Behavior: Continue annual sc reening with LDCT in 12 months. S Modifier (other clinically significant findings): None [facility], , 10/04/2024 7:56 AM
== END | disposition home or self-care (01) ==
LOC: RADCTMAIN 06:38
PROVIDERS: ATTEND Internal Medicine
DX: Z12.2 Encounter for screening for malignant neoplasm of respiratory organs (principal); F17.210 Nicotine dependence, cigarettes, uncomplicated
CPT/HCPCS: 71271